=== PATIENT | female | born 1935 | race Caucasian/White ===

== ENCOUNTER 2024-11-25 18:35 | Inpatient (IN) | payer MEDICARE, MEDICAID ==
[~2024-11-25] VITALS: Ht 157.5 cm; Wt 59.4 kg
--- NOTE | 2024-11-25 19:31 | ED.PDOC ---
History of Present Illness HPI Comments Patient is a 89-year-old female with a past medical history of osteopenia, kyphosis, chronic back pain, GERD, peptic ulcer was brought into the ED via her global engineering manager with a chief complaint of generalized weakness and abdominal pain. The global engineering manager reports that patient has been complaining of abdominal pain and grabbing her right flank and right lower abdomen, nausea and multiple episodes of vomiting since the morning, no blood in the vomitus. Patient was unable to walk today and was weak. No fall was reported. The due reported history of a bleeding peptic ulcer in 2021 following which the patient had an EGD and cauterization. Patient denies any pain on urination, no hematuria, no sup rapubic pain, no fever or chills. 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 GRADER History Family History Family History: Reviewed,noncontributory to illness, No family hx of Cancer, No family hx of DM, No family hx of Heart eliceo, No family hx of HTN, No family hx ofKidney eliceo, No family hx of Liver eliceo, No family hx of Lung eliceo, No family hx of Stroke Social History Smoker: Non-Smoker Alcohol: Denies ETOH Use Drugs: Denies Drug Use Constitutional: reports: fatigue, weakness EENTM: denies: blurred vision, double vision, ear bleeding, ear discharge, ear drainage, ear pain, ear ringing, eye pain, eye redness, hearing loss, mouth pain, mouth swelling, nasal discharge, nose bleeding, nose congestion, nose pain, photophobia, tearing, throat pain, throat swelling, voice changes, others Respiratory: denies: cough, hemoptysis, orthopnea, SOB at rest, shortness of breath, SOB with excertion, stridor, wheezing, others Cardiovascular: denies: chest pain, dizzy spells, diaphoresis, Dyspnea on exertion, edema, irregular heart beat, left arm pain, lightheadedness, palpitations, PND, syncope, others Gastrointestinal: reports: abdominal pain, nausea, poor fluid intake, vomiting Genitourinary: denies: abnormal vagina bleeding, burning, dyspareunia, dysuria, flank pain, frequency, hematuria, incontinence, pain, , vagina discharge, urgency, others Neurological: denies: dizziness, fainting, headache, left sided numbness, left sided weakness, numbness, paresthesia, pre-existing deficit, right sided numbness, right sided weakness, seizure, speech problems, tingling, tremors, weakness, others Musculoskeletal: denies: back pain, gout, joint pain, joint swelling, muscle pain, muscle stiffness, neck pain, others Integumetry: denies: bruises, change in color, change in hair/nails, dryness, laceration, lesions, lumps, rash, wounds, others Allergic/Immunocompromised: denies: Difficulty Healing, Frequent Infections, Hives, Itching, others Hematologic/Lymphatic: denies: anemia, blood clots, easy bleeding, easy bruising, swollen glands, others Endocrine: denies: excessive hunger, excessive sweating, excessive thirst, excessive urination, flushing, intolerance to cold, intolerance to heat, unexplained weight gain, unexplained weight loss, others Psychiatric: denies: anxiety, bipolar disorder, depression, hopeless, panic disorder, schizophrenia, sleepless, suicidal, others Physical Exam General Appearance: Thin HEENT: Normal ENT Inspection, Pharynx Normal, TMs Normal Neck: Full Range of Motion, Non-Tender, Normal, Normal Inspection Respiratory: Chest Non-Tender, Lungs Clear, No Accessory Muscle Use, No Respiratory Distress, Normal Breath Sounds Cardiovascular: No Edema, No JVD, No Murmur, No Gallop, Normal Peripheral Pulses, Regular Rate/Rhythm Breast Exam: Deferred Gastrointestinal: No Organomegaly, Non Tender, No Pulsatile Mass, Normal Bowel Sounds, Soft Genitalia: Deferred Pelvic: Deferred Rectal: Deferred Extremities: No calf tenderness, Normal capillary refill, Normal inspection, Normal range of motion, Non-tender, No pedal edema Neurologic: Alert, library media assistant II-XII nml as Tested, No Motor Deficits, Normal Affect, Normal Mood, No Sensory Deficits Cerebellar Function: Normal Reflexes: Normal Skin: Dry, Normal Color, Warm Peripheral Pulses: 2+ carotid (R), 2+ carotid (L), 2+ femoral (R), 2+ femoral (L), 2+ dorsalis pedis (R), 2+ dorsalis pedis (L), 2+ Radial (R), 2+ Radial (L) Lymphatic: No Adenopathy Was a procedure done? Was a procedure done?: No Differential Dx Considerations may include: Acute gastritis, gastroenteritis, diverticulitis SBO, GERD, peptic ulcer disease, cholelithiasis, cholecystitis X-Ray, Labs, Meds, VS Vital Signs Date Time Temp Pulse Resp B/P (MAP) Pulse Ox O2 Delivery O2 Flow Rate FiO2 11/25/24 18:50 97.4 80 16 110/45 (66) 95 97.4 Lab Test 11/25/24 19:41 Range/Units White Blood Count 6.5 4.4-10.8 10^3/uL Red Blood Count 5.00 4.0-5.20 10^6/uL Hemoglobin 15.9 12.2-16.2 g/dL Hematocrit 46.9 H 36.0-46.0 % Mean Corpuscular Volume 93.9 80.0-100.0 fL Mean Corpuscular Hemoglobin 31.8 28.0-32.0 pg Mean Corpuscular Hemoglobin Concent 33.9 32.0-36.0 g/dL Red Cell Distribution Width 13.5 11.8-14.3 % Platelet Count 334 140-450 10^3/uL Mean Platelet Volume 7.5 6.9-10.8 fL Neutrophils (%) (Auto) 70.2 37.0-80.0 % Lymphocytes (%) (Auto) 21.9 10.0-50.0 % Monocytes (%) (Auto) 7.2 0.0-12.0 % Eosinophils (%) (Auto) 0.0 0.0-7.0 % Basophils (%) (Auto) 0.7 0.0-2.0 % Neutrophils # (Auto) 4.6 1.6-8.6 10 ^3/uL Lymphocytes # (Auto) 1.4 0.4-5.4 10 ^3/uL Monocytes # (Auto) 0.5 0-1.3 10 ^3/uL Eosinophils # (Auto) 0 0-0.8 10 ^3/uL Basophils # (Auto) 0 0-0.2 10 ^3/uL Nucleated Red Blood Cells 0.1 % Sodium Level 136 136-145 mmol/L Potassium Level 4.6 3.5-5.1 mmol/L Chloride Level 102 98-107 mmol/L Carbon Dioxide Level 22 20-31 mmol/L Anion Gap 12 5-15 Blood Urea Nitrogen 17 9-23 mg/dL Creatinine 1.51 H 0.550-1.02 mg/dL Glomerular Filtration Rate Calc 33 >90 mL/min BUN/Creatinine Ratio 11.3 10.0-20.0 Serum Glucose 148 H 74-106 mg/dL Calcium Level 10.2 8.7-10.4 mg/dL Patient is a 89-year-old female came in with a chief complaint of abdominal pain and intractable nausea and vomiting. She is not able to keep anything down since the morning. CT abdomen and pelvis was done which showed cholelithiasis, ascending colitis. Patient heard a mild HEATH on CKD likely due to dehydration. She continued to have nausea and vomiting and was given Zofran, Protonix, kept NPO and given IV antibiotics along with the IV fluids. Patient will need inpatient admission for further management and patient and her global engineering manager agrees to the plan. Time of 1ST Reevaluation: 20:10 Reevaluation 1ST: Unchanged Time of 2ND Reevaluation: 21:11 Reevaluation 2ND: Unchanged Patient Education/Counseling: Diagnosis, Treatment, Prognosis Family Education/Counseling: Diagnosis, Treatment, Prognosis SEPSIS Sepsis Screen Physician Orders Ct Ab Pel Wo Con-No Oral Or Iv (11/25/24 19:04) Type And Screen (11/25/24 19:04) Urinalysis (11/25/24 19:04) Abdomen Limited (11/25/24 21:19) Ceftriaxone Ivpb Rocephin (11/25/24 21:30) Metronidazole Ivpb Flagyl (11/25/24 21:30) Ondansetron Hcl (Zofran) (11/25/24 21:30) Blood Culture (11/25/24 21:19) Lactic Acid W/ Reflex Order (11/25/24 21:19) NS (11/25/24 21:30) Vital Signs Date Time Temp Pulse Resp B/P (MAP) Pulse Ox O2 Delivery O2 Flow Rate FiO2 11/25/24 18:50 97.4 80 16 110/45 (66) 95 97.4 Laboratory Tests Test 11/25/24 19:41 White Blood Count 6.5 10^3/uL (4.4-10.8) Departure 1 Departure Time of Disposition: 21:30 Impression: Primary Impression: Acute colitis Additional Impressions: Cholelithiasis Gastroenteritis Acute kidney injury superimposed on CKD Intractable nausea and vomiting Disposition: ADMITTED INPATIENT Condition: Stable Critical Care Note Critical Care Time?: No Stability Stability form required: No Heart Score Heart Score: Heart Score Response (Comments) Value History N/A 0 EKG N/A 0 Age N/A 0 Risk Factors N/A 0 Troponin N/A 0 Total 0 JUSTINA LINARES RESIDENT Nov 25, 2024 19:31
[2024-11-25 20:00] LABS: Hematocrit 46.9 % (36.0-46.0); Hemoglobin 15.9 g/dL (12.2-16.2); Mean Corpuscular Hemoglobin 31.8 pg (28.0-32.0); Mean Corpuscular Volume 93.9 fL (80.0-100.0); Nucleated Red Blood Cells % 0.1 %
[2024-11-25 20:13] LABS: Chloride 102 mmol/L (98-107); Potassium 4.6 mmol/L (3.5-5.1)
[2024-11-25 20:14] LABS: Anion Gap 12 (5-15); Calcium 10.2 mg/dL (8.7-10.4); Carbon Dioxide 22 mmol/L (20-31)
[2024-11-25 20:19] LABS: BUN/Creatinine Ratio 11.3 (10.0-20.0); Blood Urea Nitrogen 17 mg/dL (9-23)
--- NOTE | 2024-11-25 21:05 | DVH ---
Exam: CT CT AB PEL WO CON-NO ORAL OR IV History: intractable N/V, abd pain Comparison Study: None TECHNIQUE: Multidetector CT of the abdomen and pelvis without IV contrast. Axial, coronal and sagitta l multiplanar reformats were obtained from the axial data set by the technologist. Radiation Dose Information: CT Dose: CTDI volume is 9.67 mGy. Dose-length product is 593.77 mGy*cm FINDINGS: Bibasilar atelectasis with trace left-sided pleural effusion. Partially visualized heart is unremark able. Gallstones within a moderately distended gallbladder. Liver, spleen, pancreas and adrenal glands unre markable. Punctate nonobstructing left renal calculus. Mild left pelviectasis. Bilateral ureters and urinary bl adder unremarkable. Uterus and adnexa are unremarkable. There is layering fluid within the gastric fundus. Stomach is otherwise unremarkable. Small bowel loo ps are fluid-filled and non distended. Appendix is not definitely visualized. Mild wall thickening of the ascending colon. Small to moderate amount of fecal material within the colon. No evidence of intraperitoneal free air or free fluid. No evidence of aortic aneurysm. Mild atherosclerotic calcification of the aorta. No significant lymphadenopathy. Tiny fat containing umbilical hernia. Minimal body wall edema. Diffuse demineralization. Mild loss of superior vertebral body height of L1. Moderate loss of vertebral body height of T7 and T9 with mild -to-moderate loss of vertebral body height of T6 and T11. Sclerotic focus of the left L2 vertebral coni dy which may represent a bone island with a blastic lesion not excluded IMPRESSION: Mild wall thickening Distal ascending colon which may be due to inadequate distention with mild Coli tis not excluded. Cholelithiasis without evidence for acute cholecystitis. Right upper quadrant ultrasound should be co nsidered for further evaluation. Mild left renal pelviectasis with no obstructing calculus noted. Punctate nonobstructing left renal calculus. Bibasilar atelectasis with trace left-sided pleural effusion.
[2024-11-25 21:18] LABS: Glucose 148 mg/dL (74-106); Sodium 136 mmol/L (136-145)
[2024-11-25] MEDS ORDERED: ONDANSETRON HCL 4 MG/2 ML VIAL IV PRN (22:00)
--- NOTE | 2024-11-25 22:38 | DVH ---
INDICATION: Cholelithiasis, abd pain , suspected cholecystitis TECHNIQUE: Multiple real-time sonographic images were obtained of the right upper quadrant. COMPARISON: None FINDINGS: Evaluation is mildly limited. The liver demonstrates homogenous echotexture without focal mass lesions. The liver measures 9.4 mm. There is no intrahepatic or extrahepatic ductal dilatation. The common duct measures 5 cm. There is cholelithiasis. The gallbladder wall measures 1 mm and is within normal limits. The right kidney measures 7.0 cm. The right kidney is normal in contour, size, and shape. The echog enicity is normal. There is no hydronephrosis. The pancreas is not well visualized due to overlying bowel gas. IMPRESSION: 1. Cholelithiasis without sonographic evidence of acute cholecystitis.
[2024-11-25 22:53] LABS: Lactic Acid w/Reflex 2.4 mmol/L (0.4-2.0)
[2024-11-26] VITALS (7 sets, daily range): BP systolic 130–154; BP diastolic 52–77; PULSE 65–85; RESP 17–18; TEMP 97.3–98.1; O2SAT 92–95
[2024-11-26] MEDS: ONDANSETRON HCL 4 MG/2 ML VIAL IV ONE ×2 (01:36→01:53)
[2024-11-26] MEDS: cefTRIAXone 1GM/50ML D5W 50 ML IV ONE ×2 (01:53→12:47)
[2024-11-26] MEDS: PANTOPRAZOLE 40 MG/10 ML VIAL INJ IV ONE (01:54)
[2024-11-26] MEDS: SODIUM CHLORIDE 0.9% 1,000 ML IV ONE ×2 (01:54→12:42)
[2024-11-26] MEDS ORDERED: CHOL20007 PO (03:08)
[2024-11-26] MEDS ORDERED: MULT-732 OR (03:08)
--- NOTE | 2024-11-26 03:48 | DVHHP2 ---
History of Present Illness Reason for Visit: Nausea and vomiting History of Present Illness 89-year-old female presents for evaluation of nausea and vomiting. Patient is accompanied by her caregiver reports patient having nausea and vomiting since yesterday with associated decreased appetite. Patient does have a history of de mentia. It is reported the patient is complaining of right-sided abdominal pain. No fever or chills. No diarrhea. Past Medical History Peptic ulcer disease, dementia Past Surgical History Appendectomy Family History Noncontributory Smoke: No ALCOHOL: none Drugs: None Review of Systems Review of Systems Constituitional: Negative for fever HENT: Negative for Headache, Negative for Sore Throat Eyes: Negative for pain and change in vision Respirartory: Negative for Shortness of Breath Cardiovascular: Negative for Chest Pain Gastrointestinal: Negative for abdominal pain, swelling Endocrine: Negative for polyuria, Polydipsia Genitourinary: Negative for dysuria Musculoskeletal: Negative for skeletal pain Skin Negative for rash Neurological: Negative for headache and weakness All other systems reviewed and negative are limited due to the patient's dementia. Allergies: Coded Allergies: NO KNOWN ALLERGIES (Unverified , 11/25/24) Medications Current Medications Medications Dose Ordered Sig/Marci Route Start Time Stop Time Status Last Admin Dose Admin Metronidazole 100 ml @ 100 mls/hr Q8HR IV 11/26/24 06:00 Pantoprazole Sodium 40 mg DAILY IV 11/26/24 10:00 Acetaminophen/ Hydrocodone Bitart 1 tab Q4HP PRN PO 11/25/24 22:00 Ondansetron HCl 4 mg Q4HP PRN IV 11/25/24 22:00 Acetaminophen 650 mg Q6HP PRN PO 11/25/24 22:00 Exam Vital Signs Vital Signs Date Time Temp Pulse Resp B/P (MAP) Pulse Ox O2 Delivery O2 Flow Rate FiO2 11/26/24 02:15 65 18 95 Room Air 11/26/24 02:15 98.6 155/54 (87) 98.6 Exam Gen: 89-year-old female in mild distress Skin: Warm, dry, normal color and texture, no rash. HEENT: Normocephalic atraumatic, mucous membranes moist and pink. Neck: Cervical and supraclavicular nodes normal without enlargement, trachea is midline, thyroid gland is normal without masses. Pulmonary: Clear to auscultation and percussion bilaterally. Cardiac: Regular rate and rhythm. No murmur Abdomen: Soft, nontender, nondistended, bowel sounds present all 4 quadrants, no guarding, no rigidity, no organomegaly. Extremities: No cyanosis, clubbing, no edema Neuro: Cranial nerves II through XII grossly intact, normal affect and speech, no focal motor deficits. Labs/Xrays ORDERING PHYSICIAN: JUSTINA LINARES RESIDENT PROCEDURE(s): ABDL - ABDOMEN LIMITED REASON: Cholelithiasis, abd pain , suspected cholecystitis ORDER NUMBER(s): [id number], ACCESSION NUMBER(s): [id number] INDICATION: Cholelithiasis, abd pain , suspected cholecystitis TECHNIQUE: Multiple real-time sonographic images were obtained of the right upper quadrant. COMPARISON: None FINDINGS: Evaluation is mildly limited. The liver demonstrates homogenous echotexture without focal mass lesions. The liver measures 9.4 mm. There is no intrahepatic or extrahepatic ductal dilatation. The common duct measures 5 cm. There is cholelithiasis. The gallbladder wall measures 1 mm and is within normal limits. The right kidney measures 7.0 cm. The right kidney is normal in contour, size, and shape. The echogenicity is normal. There is no hydronephrosis. The pancreas is not well visualized due to overlying bowel gas. IMPRESSION: 1. Cholelithiasis without sonographic evidence of acute cholecystitis. RING PHYSICIAN: JUSTINA LINARES RESIDENT PROCEDURE(s): ABPL - CT AB PEL WO CON-NO ORAL OR IV REASON: intractable N/V, abd pain ORDER NUMBER(s): [id number], ACCESSION NUMBER(s): [id number] Exam: CT CT AB PEL WO CON-NO ORAL OR IV History: intractable N/V, abd pain Comparison Study: None TECHNIQUE: Multidetector CT of the abdomen and pelvis without IV contrast. Axial, coronal and sagittal multiplanar reformats were obtained from the axial data set by the technologist. Radiation Dose Information: CT Dose: CTDI volume is 9.67 mGy. Dose-length product is 593.77 mGy*cm FINDINGS: Bibasilar atelectasis with trace left-sided pleural effusion. Partially visualized heart is unremarkable. Gallstones within a moderately distended gallbladder. Liver, spleen, pancreas and adrenal glands unremarkable. Punctate nonobstructing left renal calculus. Mild left pelviectasis. Bilateral ureters and urinary bladder unremarkable. Uterus and adnexa are unremarkable. There is layering fluid within the gastric fundus. Stomach is otherwise unremarkable. Small bowel loops are fluid-filled and non distended. Appendix is not definitely visualized. Mild wall thickening of the ascending colon. Small to moderate amount of fecal material within the colon. No evidence of intraperitoneal free air or free fluid. No evidence of aortic aneurysm. Mild atherosclerotic calcification of the aorta. No significant lymphadenopathy. Tiny fat containing umbilical hernia. Minimal body wall edema. Diffuse demineralization. Mild loss of superior vertebral body height of L1. Moderate loss of vertebral body height of T7 and T9 with [id number] loss of vertebral body height of T6 and T11. Sclerotic focus of the left L2 vertebral body which may represent a bone island with a blastic lesion not excluded IMPRESSION: Mild wall thickening Distal ascending colon which may be due to inadequate distention with mild Colitis not excluded. Cholelithiasis without evidence for acute cholecystitis. Right upper quadrant ultrasound should be considered for further evaluation. Mild left renal pelviectasis with no obstructing calculus noted. Punctate nonobstructing left renal calculus. Bibasilar atelectasis with trace left-sided pleural effusion. ATED BY: PRISCILA MARTÍNEZ DO Labs Test 11/25/24 23:33 11/25/24 19:41 Range/Units Lactic Acid Level 2.2 *H 0.4-2.0 mmol/L White Blood Count 6.5 4.4-10.8 10^3/uL Red Blood Count 5.00 4.0-5.20 10^6/uL Hemoglobin 15.9 12.2-16.2 g/dL Hematocrit 46.9 H 36.0-46.0 % Mean Corpuscular Volume 93.9 80.0-100.0 fL Mean Corpuscular Hemoglobin 31.8 28.0-32.0 pg Mean Corpuscular Hemoglobin Concent 33.9 32.0-36.0 g/dL Red Cell Distribution Width 13.5 11.8-14.3 % Platelet Count 334 140-450 10^3/uL Mean Platelet Volume 7.5 6.9-10.8 fL Neutrophils (%) (Auto) 70.2 37.0-80.0 % Lymphocytes (%) (Auto) 21.9 10.0-50.0 % Monocytes (%) (Auto) 7.2 0.0-12.0 % Eosinophils (%) (Auto) 0.0 0.0-7.0 % Basophils (%) (Auto) 0.7 0.0-2.0 % Neutrophils # (Auto) 4.6 1.6-8.6 10 ^3/uL Lymphocytes # (Auto) 1.4 0.4-5.4 10 ^3/uL Monocytes # (Auto) 0.5 0-1.3 10 ^3/uL Eosinophils # (Auto) 0 0-0.8 10 ^3/uL Basophils # (Auto) 0 0-0.2 10 ^3/uL Nucleated Red Blood Cells 0.1 % Sodium Level 136 136-145 mmol/L Potassium Level 4.6 3.5-5.1 mmol/L Chloride Level 102 98-107 mmol/L Carbon Dioxide Level 22 20-31 mmol/L Anion Gap 12 5-15 Blood Urea Nitrogen 17 9-23 mg/dL Creatinine 1.51 H 0.550-1.02 mg/dL Glomerular Filtration Rate Calc 33 >90 mL/min BUN/Creatinine Ratio 11.3 10.0-20.0 Serum Glucose 148 H 74-106 mg/dL Calcium Level 10.2 8.7-10.4 mg/dL SEPSIS Sepsis Screen Date sepsis recognized/suspect: Nov 25, 2024 Time Sepsis recognized/suspect: 1844 Recent Procedure: No On Antibiotic Therapy: No Respiratory Rate >20: No Heart Rate >90: No Temp<36 C (96.8 F) or >38.3 C: No SBP <90 or MAP <65 mmHG: No New Acute Mental Status Change: No Is the patient on CPAP, BIPAP,: No Physician Orders Abdomen Limited (11/25/24 21:19) Blood Culture (11/25/24 21:19) Urinalysis (11/25/24 21:54) Pantoprazole (Protonix) (11/26/24 10:00) * Gi Dvh Beef Splitter (11/25/24 21:54) Basic Metabolic Panel (11/26/24 04:00) Admit (11/25/24 21:54) Hydrocodone-Acet 5/325mg Tab ([place] /32 (11/25/24 22:00) Ondansetron Hcl (Zofran) (11/25/24 22:00) Condition: Stable (11/25/24 21:54) Acetaminophen Tablet (Tylenol Tablet) (11/25/24 22:00) Clear Liq Diet (11/26/24 Breakfast) Bedrest With Bathroom Privileg (11/25/24 21:54) Metronidazole 500mg/100ml (Flagyl 500mg/ (11/26/24 06:00) Vital Signs Date Time Temp Pulse Resp B/P (MAP) Pulse Ox O2 Delivery O2 Flow Rate FiO2 11/26/24 02:15 65 18 95 Room Air 11/26/24 02:15 98.6 76 18 155/54 (87) 95 98.6 Laboratory Tests Test 11/25/24 19:41 11/25/24 21:20 11/25/24 23:33 White Blood Count 6.5 10^3/uL (4.4-10.8) Lactic Acid Level 2.4 mmol/L (0.4-2.0) *H 2.2 mmol/L (0.4-2.0) *H Medications Medications Dose Ordered Sig/Marci Route Start Time Stop Time Status Last Admin Dose Admin Ceftriaxone Sodium 50 ml @ 100 mls/hr ONCE ONCE IV 11/25/24 21:30 11/25/24 21:59 DC 11/26/24 01:53 100 MLS/HR Ondansetron HCl 4 mg ONCE ONCE IV 11/25/24 21:30 11/25/24 21:54 DC 11/26/24 01:53 4 MG Pantoprazole Sodium 40 mg ONCE ONCE IV 11/25/24 19:15 11/25/24 19:16 DC 11/26/24 01:54 40 MG Sodium Chloride 1,000 ml @ 500 mls/hr Q2H ONCE IV 11/25/24 21:30 11/25/24 23:29 DC 11/26/24 01:54 500 MLS/HR Assessment/Plan Assessment/Plan Assessment Acute abdominal pain ? Acute colitis Acute on chronic kidney disease Plan Admit the patient to Med surge to the hospitalist GI consult Roceproman/Flagyl Maintenance IV fluids Continue treatment per orders. Plan discussed with: Other My Orders Orders - JAYA MADERA Procedure Category Date Status Time Urinalysis LAB 11/25/24 Logged 21:54 Pantoprazole PHA 11/26/24 In Process (Protonix) 10:00 * Gi Dvh Beef Splitter CONS 11/25/24 Transmitted 21:54 Basic Metabolic Panel LAB 11/26/24 Logged 04:00 Admit ADMIT 11/25/24 Transmitted 21:54 Hydrocodone-Acet PHA 11/25/24 In Process 5/325mg Tab ([place] 22:00 Ondansetron Hcl PHA 11/25/24 In Process (Zofran) 22:00 Condition: Stable [facility] 11/25/24 In Process 21:54 Acetaminophen Tablet PHA 11/25/24 In Process (Tylenol Tablet) 22:00 Clear Liq Diet DIET 11/26/24 Transmitted Breakfast Bedrest With Bathroom [facility] 11/25/24 In Process Privileg 21:54 Metronidazole PHA 11/26/24 In Process 500mg/100ml (Flagyl 06:00 Date of Service: Nov 25, 2024 Billing Provider: JAYA MADERA Common Visit Codes: [id number] INP/OBS CARE (MOD) JAYA MADERA Nov 26, 2024 03:48
[2024-11-26 07:07] LABS: Chloride 103 mmol/L (98-107); Potassium 4.5 mmol/L (3.5-5.1); Sodium 136 mmol/L (136-145)
[2024-11-26 07:08] LABS: Anion Gap 9 (5-15); Calcium 9.6 mg/dL (8.7-10.4); Carbon Dioxide 24 mmol/L (20-31)
[2024-11-26 07:13] LABS: BUN/Creatinine Ratio 13.8 (10.0-20.0); Blood Urea Nitrogen 19 mg/dL (9-23); Glucose 120 mg/dL (74-106)
[2024-11-26] MEDS: PANTOPRAZOLE 40 MG/10 ML VIAL INJ IV SCH (09:12)
[2024-11-26 09:49] LABS: Alanine Aminotransferase 11.0 U/L (7-40); Albumin 3.8 g/dL (3.2-4.8); Alkaline Phosphatase 74.0 U/L (46-116); Bilirubin, Direct 0.2 mg/dL (<0.3); Bilirubin, Total 0.5 mg/dL (0.2-1.0); Total Protein 6.5 g/dL (5.7-8.2)
--- NOTE | 2024-11-26 13:17 | DVHINCON2 ---
GI Consult Consult Note GI consult note Date of Consultation: 11/26/2024 Chief Complaint: Abdominal pain Referring Physician: Gregory CHAVEZ H&P: 89-year-old female presented to ER with complains of nausea and vomiting, patient had about 10 episodes last night per caregiver. No hematemesis. Patient also complaining of abdominal pain, which seems to be get worse after eating, but overall pain is improving. Patient complains of back pain which seems to be worse with movement. Also having loose watery stools about 3 times last night. No melena or red blood in stool Patient has history of PUD, status post EGD three years ago Past Medical History: Peptic ulcer disease, dementia Past Surgical History: Appendectomy Social History: NO smoking, drinking ETOH and use of illegal drugs. Family History: Noncontributory Review of Systems: Constitutional: no fever, chill, weight loss HEENT: no eye pain, no hearing loss, no oral lesion, no scleral icterus Heart: no chest pain, no chest pressure Lung: no cough, no dyspnea with exertion Abdomen: see HPI Physical exam: General: NAD, AAO Chest: lung trammell clear to auscultation Heart: RRR, no murmur Abdomen: non-distended, no tenderness to palpation, +BS Labs: Labs Test 11/26/24 05:41 11/25/24 23:33 11/25/24 19:41 Range/Units Sodium Level 136 136-145 mmol/L Potassium Level 4.5 3.5-5.1 mmol/L Chloride Level 103 98-107 mmol/L Carbon Dioxide Level 24 20-31 mmol/L Anion Gap 9 5-15 Blood Urea Nitrogen 19 9-23 mg/dL Creatinine 1.38 H 0.550-1.02 mg/dL Glomerular Filtration Rate Calc 37 >90 mL/min BUN/Creatinine Ratio 13.8 10.0-20.0 Serum Glucose 120 H 74-106 mg/dL Calcium Level 9.6 8.7-10.4 mg/dL Total Bilirubin 0.5 0.2-1.0 mg/dL Direct Bilirubin 0.2 <0.3 mg/dL Aspartate Amino Transferase (AST) 21 13-40 U/L Alanine Aminotransferase (ALT) 11 7-40 U/L Alkaline Phosphatase 74 46-116 U/L Total Protein 6.5 5.7-8.2 g/dL Albumin 3.8 3.2-4.8 g/dL Lactic Acid Level 2.2 *H 0.4-2.0 mmol/L White Blood Count 6.5 4.4-10.8 10^3/uL Red Blood Count 5.00 4.0-5.20 10^6/uL Hemoglobin 15.9 12.2-16.2 g/dL Hematocrit 46.9 H 36.0-46.0 % Mean Corpuscular Volume 93.9 80.0-100.0 fL Mean Corpuscular Hemoglobin 31.8 28.0-32.0 pg Mean Corpuscular Hemoglobin Concent 33.9 32.0-36.0 g/dL Red Cell Distribution Width 13.5 11.8-14.3 % Platelet Count 334 140-450 10^3/uL Mean Platelet Volume 7.5 6.9-10.8 fL Neutrophils (%) (Auto) 70.2 37.0-80.0 % Lymphocytes (%) (Auto) 21.9 10.0-50.0 % Monocytes (%) (Auto) 7.2 0.0-12.0 % Eosinophils (%) (Auto) 0.0 0.0-7.0 % Basophils (%) (Auto) 0.7 0.0-2.0 % Neutrophils # (Auto) 4.6 1.6-8.6 10 ^3/uL Lymphocytes # (Auto) 1.4 0.4-5.4 10 ^3/uL Monocytes # (Auto) 0.5 0-1.3 10 ^3/uL Eosinophils # (Auto) 0 0-0.8 10 ^3/uL Basophils # (Auto) 0 0-0.2 10 ^3/uL Nucleated Red Blood Cells 0.1 % Imaging: CT abdomen pelvis IMPRESSION: Mild wall thickening Distal ascending colon which may be due to inadequate distention with mild Colitis not excluded. Cholelithiasis without evidence for acute cholecystitis. Right upper quadrant ultrasound should be considered for further evaluation. Mild left renal pelviectasis with no obstructing calculus noted. Punctate nonobstructing left renal calculus. Bibasilar atelectasis with trace left-sided pleural effusion. Abdominal ultrasound IMPRESSION: 1. Cholelithiasis without sonographic evidence of acute cholecystitis. Assessment: Abdominal pain Nausea vomiting Cholelithiasis Possible colitis Plan: Discussed with Dr. José Antonio SULLIVAN scan Stool for bacterial culture and C diff Zofran and Protonix Monitor labs Discussed plan with patient family at bedside and RN Thank you for this consult Date of Service: Nov 26, 2024 Billing Provider: SYBIL SALINAS Common Visit Codes: CONSULT ONLY Consultation Codes: [id number] CONSULT <60MIN SYBIL SALINAS Nov 26, 2024 13:17
--- NOTE | 2024-11-26 14:39 | DVH ---
CLINICAL INFORMATION: 89 years old, Female; abdo pain/gallstones. TECHNIQUE: 3.4 mCi of Choletec were administered intravenously. Images of the upper abdomen were ob tained at 2 minute intervals up to a total time of 32 minutes. COMPARISON: None FINDINGS: There is prompt gallbladder visualization. There is prompt excretion of activity from the biliary ductal system into the small bowel. There is no evidence of acute cholecystitis. IMPRESSION: No scintigraphic evidence of acute cholecystitis.
--- NOTE | 2024-11-26 16:44 | DVHPN2 ---
Subjective She is comfortable in bed without distress. Family is at bedside. Patient apparently has dementia and gets sundowning per family. Changes from previous H/P or p: No Changes Objective Vitals Vital Signs Date Time Temp Pulse Resp B/P (MAP) Pulse Ox O2 Delivery O2 Flow Rate FiO2 11/26/24 13:00 97.3 65 18 154/77 (102) 95 97.3 11/26/24 07:30 Room Air* 0 21 Intake/Output Intake and Output 11/26/24 07:00 Intake Total 100 ml Balance 100 ml Intake Oral 100 ml # Voids 1 Exam Alert awake oriented to person only. Comfortable in bed without distress. Family is at bedside. HEENT neck supple no JVD pupils equal round react to light. Heart regular rate and rhythm S1 plus S2 without murmurs. Lungs fair air movement chest tube will expansion. No rales or wheezes. Abdomen is soft nontender nondistended positive bowel sounds. No organomegaly noted. Extremities no edema positive pulses. Medications Current Medications Medications Dose Ordered Sig/Marci Route Start Time Stop Time Status Last Admin Dose Admin Metronidazole 100 ml @ 100 mls/hr Q8HR IV 11/26/24 06:00 11/26/24 14:34 100 MLS/HR Pantoprazole Sodium 40 mg DAILY IV 11/26/24 10:00 11/26/24 09:12 40 MG Acetaminophen/ Hydrocodone Bitart 1 tab Q4HP PRN PO 11/25/24 22:00 Ondansetron HCl 4 mg Q4HP PRN IV 11/25/24 22:00 Acetaminophen 650 mg Q6HP PRN PO 11/25/24 22:00 Enoxaparin Sodium 30 mg DAILY SC 11/27/24 10:00 Ceftriaxone Sodium 50 ml @ 100 mls/hr DAILY@09 IV 11/27/24 09:00 Laboratory Results Laboratory Tests 11/25/24 19:41 11/26/24 05:41 Chemistry Test 11/25/24 19:41 11/26/24 05:41 Calcium Level 10.2 mg/dL (8.7-10.4) 9.6 mg/dL (8.7-10.4) Albumin 3.8 g/dL (3.2-4.8) Total Protein 6.5 g/dL (5.7-8.2) LFT Test 11/26/24 05:41 Alanine Aminotransferase (ALT) 11 U/L (7-40) Alkaline Phosphatase 74 U/L (46-116) Aspartate Amino Transferase (AST) 21 U/L (13-40) Direct Bilirubin 0.2 mg/dL (<0.3) Total Bilirubin 0.5 mg/dL (0.2-1.0) Assessment/Plan Assessment/Plan Continue current antibiotics. Advance diet as she tolerates. HIDA scan is ordered per GI request. Fall precautions. Supportive care and treatment. Further clinical management per clinical course. Discussed with the patient's family and nurse regarding care plan. Plan discussed with: Patient, Other My Orders Orders - LUCRECIA ROQUE MD Procedure Category Date Status Time Pt Request For Service PT 11/26/24 Logged 12:08 Enoxaparin Sodium PHA 11/27/24 In Process (Lovenox) 10:00 Ceftriaxone 1gm/50ml PHA 11/27/24 In Process D5w (Rocephin) 09:00 Basic Metabolic Panel LAB 11/27/24 Verified 04:00 Complete Blood Count LAB 11/27/24 Verified 04:00 Nm Hida Scan NM 11/26/24 Resulted 12:08 Lactic Acid W/ Reflex LAB 11/27/24 Verified Order 04:00 Sodium Chloride 0.9% PHA 11/26/24 In Process 12:15 Problem List: (1) Cholelithiasis (2) Acute colitis (3) Acute kidney injury superimposed on CKD Date of Service: Nov 26, 2024 Billing Provider: LUCRECIA ROQUE MD Common Visit Codes: [id number] INP/OBS CARE(MOD) LUCRECIA ROQUE MD Nov 26, 2024 16:44
[2024-11-26] MEDS: ACETAMINOPHEN 325 MG TAB PO PRN (20:52)
[2024-11-26 21:29] LABS: Urine Protein, UAD Negative (Negative)
[2024-11-27] VITALS (7 sets, daily range): BP systolic 104–149; BP diastolic 43–62; PULSE 60–80; RESP 16–18; TEMP 97.8–98.5; O2SAT 94–97
[2024-11-27 08:05] LABS: Calcium 9.2 mg/dL (8.7-10.4); Chloride 106 mmol/L (98-107); Potassium 4.2 mmol/L (3.5-5.1); Sodium 138 mmol/L (136-145)
[2024-11-27 08:06] LABS: Anion Gap 8 (5-15); Carbon Dioxide 24 mmol/L (20-31)
[2024-11-27 08:08] LABS: Hematocrit 38.5 % (36.0-46.0); Hemoglobin 13.2 g/dL (12.2-16.2); Mean Corpuscular Hemoglobin 32.2 pg (28.0-32.0); Mean Corpuscular Volume 94.1 fL (80.0-100.0); Nucleated Red Blood Cells % 0.1 %
[2024-11-27 08:11] LABS: BUN/Creatinine Ratio 13.2 (10.0-20.0); Blood Urea Nitrogen 17 mg/dL (9-23); Glucose 99 mg/dL (74-106)
[2024-11-27] MEDS: cefTRIAXone 1GM/50ML D5W 50 ML IV SCH (09:48)
[2024-11-27] MEDS: ENOXAPARIN SOD 30 MG/0.3 ML SYRINGE SC SCH (09:49)
--- NOTE | 2024-11-27 16:20 | DVHPN2 ---
Subjective She is comfortable in bed without distress. Tolerating clear liquids. Still complains of some nausea. Changes from previous H/P or p: No Changes Objective Vitals Vital Signs Date Time Temp Pulse Resp B/P (MAP) Pulse Ox O2 Delivery O2 Flow Rate FiO2 11/27/24 13:00 98.5 74 17 149/60 (89) 95 98.5 11/26/24 07:30 Room Air* 0 21 Intake/Output Intake and Output 11/27/24 07:00 Intake Total 1620 ml Balance 1620 ml Intake Oral 1620 ml # Voids 9 # Bowel Movements 1 Exam Alert awake oriented to person only. Comfortable in bed without distress. Family is at bedside. HEENT neck supple no JVD pupils equal round react to light. Heart regular rate and rhythm S1 plus S2 without murmurs. Lungs fair air movement chest tube will expansion. No rales or wheezes. Abdomen is soft nontender nondistended positive bowel sounds. No organomegaly noted. Extremities no edema positive pulses. Medications Current Medications Medications Dose Ordered Sig/Marci Route Start Time Stop Time Status Last Admin Dose Admin Metronidazole 100 ml @ 100 mls/hr Q8HR IV 11/26/24 06:00 11/27/24 14:00 100 MLS/HR Pantoprazole Sodium 40 mg DAILY IV 11/26/24 10:00 11/27/24 09:48 40 MG Acetaminophen/ Hydrocodone Bitart 1 tab Q4HP PRN PO 11/25/24 22:00 Ondansetron HCl 4 mg Q4HP PRN IV 11/25/24 22:00 Acetaminophen 650 mg Q6HP PRN PO 11/25/24 22:00 11/27/24 13:59 650 MG Enoxaparin Sodium 30 mg DAILY SC 11/27/24 10:00 11/27/24 09:49 30 MG Ceftriaxone Sodium 50 ml @ 100 mls/hr DAILY@09 IV 11/27/24 09:00 11/27/24 09:48 100 MLS/HR Laboratory Results Laboratory Tests 11/27/24 07:19 Chemistry Test 11/27/24 07:19 Calcium Level 9.2 mg/dL (8.7-10.4) Urinalysis Test 11/26/24 21:05 Urine Color Colorless (Yellow) Urine Clarity Clear (Clear) Urine pH 6.5 (5.0-9.0) Urine Specific [place] 1.006 (1.001-1.035) Urine Protein Negative (Negative) Urine Ketones Negative (Negative) Urine Blood Negative /uL (Negative) Urine Nitrite Negative (Negative) Urine Bilirubin Negative (Negative) Urine Urobilinogen Normal mg/dL (Negative) Urine Leukocyte Esterase Negative /uL (Negative) Urine RBC 1 /hpf (0 - 4) Urine Microscopic WBC 3 /HPF (0-5) Urine Squamous Epithelial Cells None seen /hpf (<5) Urine Bacteria None seen /hpf (None Seen) Urine Glucose Normal mg/dL (Normal) Microbiology Microbiology Date/Time Source Procedure Growth Status 11/25/24 21:39 Blood Blood Culture - Preliminary NO GROWTH AFTER 24 HOURS OF INCUBATION. Resulted Assessment/Plan Assessment/Plan Continue current antibiotics. Advance diet as she tolerates. HIDA scan is normal without any acute cholecystitis. Gallstones noted. Continue current management and if she remains stable consider discharge home tomorrow. Discussed with the nurse regarding care plan. Plan discussed with: Other My Orders Orders - LUCRECIA ROQUE MD Procedure Category Date Status Time Advance Diet As SHAWN 11/27/24 In Process Tolerated 11:41 Problem List: (1) Gastroenteritis (2) Intractable nausea and vomiting (3) Cholelithiasis (4) Acute colitis (5) Acute kidney injury superimposed on CKD Date of Service: Nov 27, 2024 Billing Provider: LUCRECIA ROQUE MD Common Visit Codes: [id number] INP/OBS CARE(MOD) LUCRECIA ROQUE MD Nov 27, 2024 16:19
--- NOTE | 2024-11-27 21:12 | DVHPN2 ---
Progress Note - Dictate Date Seen: Nov 27, 2024 Medical Necessity Reason Pt with a Central, PICC or Fol: No (Susan Benson) Subjective No new complaints, resting comfortably Abdominal pain has resolved patient has mild nausea She is tolerating a diet HIDA scan is negative vital signs Vital Sign Date Time Temp Pulse Resp B/P (MAP) Pulse Ox O2 Delivery O2 Flow Rate FiO2 11/27/24 16:56 98.2 76 16 140/59 (86) 94 98.2 11/27/24 08:00 Room Air* 0 21 Total Intake and Output 11/26/24 11/26/24 11/27/24 15:00 23:00 07:00 Intake Total 920 ml 700 ml Balance 920 ml 700 ml medications Current Medications Medications Dose Ordered Sig/Marci Route Start Time Stop Time Status Last Admin Dose Admin Metronidazole 100 ml @ 100 mls/hr Q8HR IV 11/26/24 06:00 11/27/24 14:00 100 MLS/HR Pantoprazole Sodium 40 mg DAILY IV 11/26/24 10:00 11/27/24 09:48 40 MG Acetaminophen/ Hydrocodone Bitart 1 tab Q4HP PRN PO 11/25/24 22:00 Ondansetron HCl 4 mg Q4HP PRN IV 11/25/24 22:00 Acetaminophen 650 mg Q6HP PRN PO 11/25/24 22:00 11/27/24 20:44 650 MG Enoxaparin Sodium 30 mg DAILY SC 11/27/24 10:00 11/27/24 09:49 30 MG Ceftriaxone Sodium 50 ml @ 100 mls/hr DAILY@09 IV 11/27/24 09:00 11/27/24 09:48 100 MLS/HR objective General: NAD, AAO Chest: lung trammell clear to auscultation Heart: RRR, no murmur Abdomen: non-distended, no tenderness to palpation, +BS laboratory and microbiology Laboratory Tests 11/27/24 07:19 Test 11/27/24 07:19 Range/Units Serum Glucose 99 74-106 mg/dL Problems(with codes): (1) Acute kidney injury superimposed on CKD (2) Acute colitis (3) Cholelithiasis (4) Intractable nausea and vomiting (5) Gastroenteritis Prognosis Plan Protonix 40 mg p.o. daily Zofran 8 mg p.o. twice a day as needed for nausea Advance diet as tolerated Outpatient follow up with GI Services to discuss elective panendoscopy Once again thank you for allowing me to participate in the care of this patient Plan discussed with: Patient ANABELL HANDY MD Nov 27, 2024 21:12
[2024-11-28 01:00] VITALS: BP 110/48; PULSE 86; RESP 17; TEMP 97.6; O2SAT 95
[2024-11-28 05:00] VITALS: BP 113/52; PULSE 85; RESP 16; TEMP 97.9; O2SAT 92
[2024-11-28 09:00] VITALS: BP 139/55; PULSE 70; RESP 18; TEMP 97.8; O2SAT 96
[2024-11-28] MEDS ORDERED: METR-344 PO (11:01)
[2024-11-28] MEDS ORDERED: CEFD300C2 PO (11:01)
[2024-11-28] MEDS ORDERED: ACET-1304 PO (11:01)
--- NOTE | 2024-11-28 11:02 | DVHDS2 ---
Discharge Summary Date of Admission Nov 25, 2024 at 21:54 Date of Discharge: Nov 29, 2024 Labs/Diagnostic Data: Laboratory Results Test 11/27/24 07:19 11/26/24 21:05 11/26/24 05:41 White Blood Count 10.1 10^3/uL (4.4-10.8) Red Blood Count 4.10 10^6/uL (4.0-5.20) Hemoglobin 13.2 g/dL (12.2-16.2) Hematocrit 38.5 % (36.0-46.0) Mean Corpuscular Volume 94.1 fL (80.0-100.0) Mean Corpuscular Hemoglobin 32.2 pg (28.0-32.0) Mean Corpuscular Hemoglobin Concent 34.2 g/dL (32.0-36.0) Red Cell Distribution Width 13.7 % (11.8-14.3) Platelet Count 268 10^3/uL (140-450) Mean Platelet Volume 7.7 fL (6.9-10.8) Neutrophils (%) (Auto) 65.6 % (37.0-80.0) Lymphocytes (%) (Auto) 20.4 % (10.0-50.0) Monocytes (%) (Auto) 13.4 % (0.0-12.0) Eosinophils (%) (Auto) 0.2 % (0.0-7.0) Basophils (%) (Auto) 0.4 % (0.0-2.0) Neutrophils # (Auto) 6.6 10 ^3/uL (1.6-8.6) Lymphocytes # (Auto) 2.1 10 ^3/uL (0.4-5.4) Monocytes # (Auto) 1.3 10 ^3/uL (0-1.3) Eosinophils # (Auto) 0 10 ^3/uL (0-0.8) Basophils # (Auto) 0 10 ^3/uL (0-0.2) Nucleated Red Blood Cells 0.1 % Sodium Level 138 mmol/L (136-145) Potassium Level 4.2 mmol/L (3.5-5.1) Chloride Level 106 mmol/L (98-107) Carbon Dioxide Level 24 mmol/L (20-31) Anion Gap 8 (5-15) Blood Urea Nitrogen 17 mg/dL (9-23) Creatinine 1.29 mg/dL (0.550-1.02) Glomerular Filtration Rate Calc 40 mL/min (>90) BUN/Creatinine Ratio 13.2 (10.0-20.0) Serum Glucose 99 mg/dL (74-106) Lactic Acid Level 0.8 mmol/L (0.4-2.0) Calcium Level 9.2 mg/dL (8.7-10.4) Urine Color Colorless (Yellow) Urine Clarity Clear (Clear) Urine pH 6.5 (5.0-9.0) Urine Specific [place] 1.006 (1.001-1.035) Urine Protein Negative (Negative) Urine Ketones Negative (Negative) Urine Blood Negative /uL (Negative) Urine Nitrite Negative (Negative) Urine Bilirubin Negative (Negative) Urine Urobilinogen Normal mg/dL (Negative) Urine Leukocyte Esterase Negative /uL (Negative) Urine RBC 1 /hpf (0 - 4) Urine Microscopic WBC 3 /HPF (0-5) Urine Squamous Epithelial Cells None seen /hpf (<5) Urine Bacteria None seen /hpf (None Seen) Urine Glucose Normal mg/dL (Normal) Total Bilirubin 0.5 mg/dL (0.2-1.0) Direct Bilirubin 0.2 mg/dL (<0.3) Aspartate Amino Transferase (AST) 21 U/L (13-40) Alanine Aminotransferase (ALT) 11 U/L (7-40) Alkaline Phosphatase 74 U/L (46-116) Total Protein 6.5 g/dL (5.7-8.2) Albumin 3.8 g/dL (3.2-4.8) Other Laboratory Tests 11/27/24 07:19 Brief Hx & Hospital Course: 89-year-old female presents for evaluation of nausea and vomiting. Patient is accompanied by her caregiver reports patient having nausea and vomiting since yesterday with associated decreased appetite. Patient does have a history of dementia. It is reported the patient is complaining of right-sided abdominal pain. No fever or chills. No diarrhea. She is admitted and had a CT of the abdomen as well as gallbladder ultrasound. Showed mild colitis. Gallbladder did not show any evidence of acute cholecystitis. While in the hospital patient did not have any significant diarrhea to send for any stool studies. Her white cell count was relatively stable. She is afebrile. Patient however empirically treated with the antibiotics for possible colitis per GI recommendations. Patient is otherwise clinically stable. Her nausea has improved. Tolerating diet. However she did complain of back pain therefore she had a lumbar spine x-ray showed a chronic compression fractures in the lumbar region without any acute pathology. I have talked with the patient's daughter over the phone regarding her hospital diagnosis, treatment she received, CT and ultrasound results, discharge medications, discharge instructions and follow-up plan of care. They have verbalized understanding of this and given patient is clinically stable agreed to take her home with outpatient follow up as mentioned. Consults/Reason for consult Indication: back pain Technique: XY LUMBAR SPINE 3 VIEWXY Comparison: None FINDINGS/IMPRESSION: Lumbar levocurvature. L4 compression deformity with 20% loss height. L1 compression deformity with 20% loss height. T11 compression deformity 50% loss height. These are of indeterminate age. If there is concern for acute fracture recommend obtaining MRI of the thoracic and lumbar spine to evaluate. Moderate to advanced multilevel disc space narrowing within the lumbar spine There is 7 mm anterolisthesis of L4 upon L5. 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 Operations or Procedures Exam: CT CT AB PEL WO CON-NO ORAL OR IV History: intractable N/V, abd pain Comparison Study: None TECHNIQUE: Multidetector CT of the abdomen and pelvis without IV contrast. Axial, coronal and sagittal multiplanar reformats were obtained from the axial data set by the technologist. Radiation Dose Information: CT Dose: CTDI volume is 9.67 mGy. Dose-length product is 593.77 mGy*cm FINDINGS: Bibasilar atelectasis with trace left-sided pleural effusion. Partially visualized heart is unremarkable. Gallstones within a moderately distended gallbladder. Liver, spleen, pancreas and adrenal glands unremarkable. Punctate nonobstructing left renal calculus. Mild left pelviectasis. Bilateral ureters and urinary bladder unremarkable. Uterus and adnexa are unremarkable. There is layering fluid within the gastric fundus. Stomach is otherwise unremarkable. Small bowel loops are fluid-filled and non distended. Appendix is not definitely visualized. Mild wall thickening of the ascending colon. Small to moderate amount of fecal material within the colon. No evidence of intraperitoneal free air or free fluid. No evidence of aortic aneurysm. Mild atherosclerotic calcification of the aorta. No significant lymphadenopathy. Tiny fat containing umbilical hernia. Minimal body wall edema. Diffuse demineralization. Mild loss of superior vertebral body height of L1. Moderate loss of vertebral body height of T7 and T9 with [id number] loss of vertebral body height of T6 and T11. Sclerotic focus of the left L2 vertebral body which may represent a bone island with a blastic lesion not excluded IMPRESSION: Mild wall thickening Distal ascending colon which may be due to inadequate distention with mild Colitis not excluded. Cholelithiasis without evidence for acute cholecystitis. Right upper quadrant ultrasound should be considered for further evaluation. Mild left renal pelviectasis with no obstructing calculus noted. Punctate nonobstructing left renal calculus. Bibasilar atelectasis with trace left-sided pleural effusion. ATED BY: HUMBERTO MARTÍNEZ DO DICTATED DATE/TIME: 11/25/242101 Condition at Discharge: Stable Final Diagnosis/Problems List colitis, back pain Discharge Disposition: Home Discharge Instruct/Medications Diet: Consistent carbohydrate, Cardiac 2g Na,low cholest Activity: No Restrictions, As Tolerated Activity comment: with assistance Follow Up/Referral: PCP next week and GI dr.Grover Farmer after 2 weeks Medications: as prescribed and home meds New Medications: Acetaminophen (Tylenol Extra Strength) 500 Mg Tab 500 MG PO Q8HPRN PRN, #20 TAB Cefdinir (Cefdinir) 300 Mg Cap 1 CAP PO BID, #10 CAP Hydrocodone-Acetaminophen (Hydrocodone Bitartrate/AC 5-325 mg) 1 Tab Tab 1 TAB PO Q8HPRN PRN, #10 TAB Metronidazole (Flagyl) 500 Mg Tab 1 TAB PO BID, #10 TAB Naloxone HCl (Narcan) 4 Mg/0.1 Ml Spr 4 MG NA Q5MINP PRN, #1 SPRAY Ondansetron Odt 4MG Tab (Zofran Po) 4 Mg Tb 4 MG PO Q8HPRN PRN, #14 TAB ODT TAB-DISSOLVE IN MOUTH, THEN SWALLOW Continued Medications: Cholecalciferol (Vitamin D3) 2,000 Unit Tab 1 TAB PO DAILY, #30 TAB 5 Refills Multiple Vitamins W/ Minerals (Centrum) Tab 1 OR, TAB Scheduled Cefdinir (Cefdinir), 1 CAP PO BID Cholecalciferol (Vitamin D3), 1 TAB PO DAILY, (Reported) Metronidazole (Flagyl), 1 TAB PO BID Scheduled PRN Acetaminophen (Tylenol Extra Strength), 500 MG PO Q8HPRN PRN Hydrocodone-Acetaminophen (Hydrocodone Bitartrate/AC 5-325 mg), 1 TAB PO Q8HPRN PRN Naloxone HCl (Narcan), 4 MG NA Q5MINP PRN Ondansetron Odt 4MG Tab (Zofran Po), 4 MG PO Q8HPRN PRN Miscellaneous Medications Multiple Vitamins W/ Minerals (Centrum), 1 OR, (Reported) Discharge Statement: "Patient was advised to return to the ER or call 911 if any headaches, dizziness, shortness of breath, chest pain, abdominal pain, bleeding, fevers, or worsening of medical condition. Patient was counseled about treatment plan, medications, possible side effects, patientverbalized understanding. All questions were answered to the best of my ability. This discharge took greater then 30 minutes in planning, reviewing documentation, counseling the patient, and discussing with other team members." ASSESSMENT ASSESSMENT Assessment colitis, back pain Date of Service: Nov 28, 2024 Billing Provider: LUCRECIA ROQUE MD Common Visit Codes: [id number] DISCH DAY <30MIN LUCRECIA ROQUE MD Nov 28, 2024 11:02
--- NOTE | 2024-11-28 11:16 | DVH ---
Indication: back pain Technique: XY LUMBAR SPINE 3 VIEWXY Comparison: None FINDINGS/IMPRESSION: Lumbar levocurvature. L4 compression deformity with 20% loss height. L1 compression deformity with 20% loss height. T11 com pression deformity 50% loss height. These are of indeterminate age. If there is concern for acute fr acture recommend obtaining MRI of the thoracic and lumbar spine to evaluate. Moderate to advanced multilevel disc space narrowing within the lumbar spine There is 7 mm anterolisthesis of L4 upon L5. 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
[2024-11-28] MEDS ORDERED: ZOFR4T PO (12:07)
[2024-11-28] MEDS: HYDROcodone-ACET 5/325MG TAB PO PRN (12:52)
[2024-11-28 13:00] VITALS: BP 134/57; PULSE 67; RESP 16; TEMP 97.7; O2SAT 98
[2024-11-28 16:48] VITALS: BP 148/92; PULSE 73; RESP 16; TEMP 97.1; O2SAT 94
[2024-11-28 21:00] VITALS: BP 96/45; PULSE 78; RESP 18; TEMP 98.8; O2SAT 93
--- NOTE | 2024-11-28 23:25 | DVHPN2 ---
Progress Note - Dictate Date Seen: Nov 28, 2024 (Late entryPatient seen at 10:00 a.m.) Medical Necessity Reason Pt with a Central, PICC or Fol: No (Susan Benson) Subjective No new complaints, resting comfortably Abdominal pain has resolved patient has mild nausea She is tolerating a diet HIDA scan is negative Patient complains of back pain Patient has underlying dementia and does not remember dates She does not recall having any EGD or colonoscopy Her history of peptic ulcer disease due to her childhood vital signs Vital Sign Date Time Temp Pulse Resp B/P (MAP) Pulse Ox O2 Delivery O2 Flow Rate FiO2 11/28/24 21:00 98.8 78 18 96/45 (62) 93 98.8 11/28/24 20:00 Room Air* 0 21 Total Intake and Output 11/27/24 11/27/24 11/28/24 15:00 23:00 07:00 Intake Total 500 ml 400 ml Output Total 100 ml Balance 400 ml 400 ml medications Current Medications Medications Dose Ordered Sig/Marci Route Start Time Stop Time Status Last Admin Dose Admin Metronidazole 100 ml @ 100 mls/hr Q8HR IV 11/26/24 06:00 11/28/24 20:59 100 MLS/HR Pantoprazole Sodium 40 mg DAILY IV 11/26/24 10:00 11/28/24 14:57 40 MG Acetaminophen/ Hydrocodone Bitart 1 tab Q4HP PRN PO 11/25/24 22:00 11/28/24 12:52 1 TAB Ondansetron HCl 4 mg Q4HP PRN IV 11/25/24 22:00 Acetaminophen 650 mg Q6HP PRN PO 11/25/24 22:00 11/28/24 10:28 650 MG Enoxaparin Sodium 30 mg DAILY SC 11/27/24 10:00 11/28/24 10:30 30 MG Ceftriaxone Sodium 50 ml @ 100 mls/hr DAILY@09 IV 11/27/24 09:00 11/27/24 09:48 100 MLS/HR objective General: NAD, AAO Chest: lung trammell clear to auscultation Heart: RRR, no murmur Abdomen: non-distended, no tenderness to palpation, +BS laboratory and microbiology Laboratory Tests 11/27/24 07:19 Test 11/27/24 07:19 Range/Units Serum Glucose 99 74-106 mg/dL Problems(with codes): (1) Acute kidney injury superimposed on CKD (2) Cholelithiasis (3) Intractable nausea and vomiting (4) Acute colitis Prognosis Plan Patient appears to be stable from a GI point of view Advance diet as tolerated Protonix 40 mg p.o. daily Pain management Discharge planning as per hospitalist Outpatient follow up with me in 4-6 weeks after discharge if any further GI workup is required Plan discussed with: Patient, Other (Dr Shukla) ANABELL HANDY MD Nov 28, 2024 23:25
[2024-11-29 00:58] VITALS: BP 99/45; PULSE 70; RESP 18; TEMP 98.9; O2SAT 94
[2024-11-29 05:00] VITALS: BP 99/48; PULSE 70; RESP 18; TEMP 98.2; O2SAT 93
[2024-11-29 09:00] VITALS: BP 97/37; PULSE 77; RESP 16; TEMP 97.9; O2SAT 97
[2024-11-29 13:00] VITALS: BP 97/35; PULSE 80; RESP 16; TEMP 98.7; O2SAT 95
--- NOTE | 2024-11-29 13:19 | DVHPN2 ---
Subjective She is discharged yesterday after speaking to patient's daughter over the phone. Apparently home health with a walker is not set up therefore patient remains in the hospital. Changes from previous H/P or p: No Changes Objective Vitals Vital Signs Date Time Temp Pulse Resp B/P (MAP) Pulse Ox O2 Delivery O2 Flow Rate FiO2 11/29/24 08:00 Room Air* 0 21 11/29/24 05:00 98.2 70 18 99/48 (65) 93 98.2 Intake/Output Intake and Output 11/29/24 07:00 Intake Total 1100 ml Balance 1100 ml Intake Oral 900 ml IV Total 200 ml # Voids 5 Exam Alert awake oriented to person only. Comfortable in bed without distress. HEENT neck supple no JVD pupils equal round react to light. Heart regular rate and rhythm S1 plus S2 without murmurs. Lungs fair air movement chest tube will expansion. No rales or wheezes. Abdomen is soft nontender nondistended positive bowel sounds. No organomegaly noted. Extremities no edema positive pulses. Medications Current Medications Medications Dose Ordered Sig/Marci Route Start Time Stop Time Status Last Admin Dose Admin Metronidazole 100 ml @ 100 mls/hr Q8HR IV 11/26/24 06:00 11/29/24 06:29 100 MLS/HR Acetaminophen/ Hydrocodone Bitart 1 tab Q4HP PRN PO 11/25/24 22:00 11/28/24 12:52 1 TAB Ondansetron HCl 4 mg Q4HP PRN IV 11/25/24 22:00 Acetaminophen 650 mg Q6HP PRN PO 11/25/24 22:00 11/29/24 09:38 650 MG Enoxaparin Sodium 30 mg DAILY SC 11/27/24 10:00 11/29/24 09:39 30 MG Laboratory Results Laboratory Tests 11/27/24 07:19 Urinalysis Test 11/26/24 21:05 Urine Color Colorless (Yellow) Urine Clarity Clear (Clear) Urine pH 6.5 (5.0-9.0) Urine Specific Hansen 1.006 (1.001-1.035) Urine Protein Negative (Negative) Urine Ketones Negative (Negative) Urine Blood Negative /uL (Negative) Urine Nitrite Negative (Negative) Urine Bilirubin Negative (Negative) Urine Urobilinogen Normal mg/dL (Negative) Urine Leukocyte Esterase Negative /uL (Negative) Urine RBC 1 /hpf (0 - 4) Urine Microscopic WBC 3 /HPF (0-5) Urine Squamous Epithelial Cells None seen /hpf (<5) Urine Bacteria None seen /hpf (None Seen) Urine Glucose Normal mg/dL (Normal) Microbiology Microbiology Date/Time Source Procedure Growth Status 11/25/24 21:39 Blood Blood Culture - Preliminary NO GROWTH AFTER 72 HOURS OF INCUBATION. Resulted Assessment/Plan Assessment/Plan We will DC IV antibiotics Rocephin. Continue Flagyl while she is here. Patient is clinically stable to be discharged home. Talked with the nurse to follow up with social services analyst to arrange walker and discharge her home today. Plan discussed with: Patient, Other My Orders Orders - LUCRECIA ROQUE MD Procedure Category Date Status Time * [employer] CONS 11/29/24 Transmitted Consult 10:30 Problem List: (1) Cholelithiasis (2) Acute colitis (3) Acute kidney injury superimposed on CKD Date of Service: Nov 29, 2024 Billing Provider: LUCRECIA ROQUE MD Common Visit Codes: [id number] INP/OBS CARE(MOD) LUCRECIA ROQUE MD Nov 29, 2024 13:19
[2024-11-29 14:35] VITALS: BP 97/35; PULSE 80; RESP 16; TEMP 98.7; O2SAT 98
--- NOTE | 2024-11-29 16:58 | DVHPN2 ---
Progress Note - Dictate Date Seen: Nov 29, 2024 Medical Necessity Reason Pt with a Central, PICC or Fol: No (Susan Benson) Subjective No new complaints, resting comfortably Abdominal pain has resolved patient has mild nausea She is tolerating a diet HIDA scan is negative Patient complains of back pain Patient has underlying dementia and does not remember dates She does not recall having any EGD or colonoscopy Her history of peptic ulcer disease due to her childhood vital signs Vital Sign Date Time Temp Pulse Resp B/P (MAP) Pulse Ox O2 Delivery O2 Flow Rate FiO2 11/29/24 14:35 98.7 80 16 98 11/29/24 13:00 97/35 (55) 11/29/24 08:00 Room Air* 0 21 Total Intake and Output 11/28/24 11/28/24 11/29/24 15:00 23:00 07:00 Intake Total 1000 ml 100 ml Balance 1000 ml 100 ml medications Current Medications Medications Dose Ordered Sig/Marci Route Start Time Stop Time Status Last Admin Dose Admin Metronidazole 100 ml @ 100 mls/hr Q8HR IV 11/26/24 06:00 11/29/24 14:00 100 MLS/HR Acetaminophen/ Hydrocodone Bitart 1 tab Q4HP PRN PO 11/25/24 22:00 11/28/24 12:52 1 TAB Ondansetron HCl 4 mg Q4HP PRN IV 11/25/24 22:00 Acetaminophen 650 mg Q6HP PRN PO 11/25/24 22:00 11/29/24 09:38 650 MG Enoxaparin Sodium 30 mg DAILY SC 11/27/24 10:00 11/29/24 09:39 30 MG objective General: NAD, AAO Chest: lung trammell clear to auscultation Heart: RRR, no murmur Abdomen: non-distended, no tenderness to palpation, +BS laboratory and microbiology Laboratory Tests 11/27/24 07:19 Test 11/27/24 07:19 Range/Units Serum Glucose 99 74-106 mg/dL Problems(with codes): (1) Acute kidney injury superimposed on CKD (2) Cholelithiasis (3) Intractable nausea and vomiting Prognosis Plan Discharge planning is in progress Awaiting home health to arrange walker Patient appears to be stable from a GI point of view Advance diet as tolerated Protonix 40 mg p.o. daily Plan discussed with: Other (Dr Shukla) ANABELL HANDY MD Nov 29, 2024 16:58
[2024-11-30] MEDS ORDERED: HYDR-4902 PO (10:14)
[2024-11-30] MEDS ORDERED: NALO4SPR2 (10:14)
== END 2024-11-29 16:40 | disposition home or self-care (01) | DRG 372 ==
LOC: ER 18:35 → OVERFLOW 21:54 → CENTRAL 23:51 → EAST 11-26 17:55
PROVIDERS: ADMIT Hospitalist; ATTEND Hospitalist
DX: A04.9 Bacterial intestinal infection, unspecified (principal); M48.56XA Collapsed vertebra, not elsewhere classified, lumbar region, initial encounter for fracture; N17.9 Acute kidney failure, unspecified; K80.20 Calculus of gallbladder without cholecystitis without obstruction; N18.9 Chronic kidney disease, unspecified; F03.90 Unspecified dementia, unspecified severity, without behavioral disturbance, psychotic disturbance, mood disturbance, and anxiety; G89.29 Other chronic pain; K21.9 Gastro-esophageal reflux disease without esophagitis; M46.1 Sacroiliitis, not elsewhere classified; M85.80 Other specified disorders of bone density and structure, unspecified site; Z87.11 Personal history of peptic ulcer disease; Z79.899 Other long term (current) drug therapy
CPT/HCPCS: 36415; 72100; 74176; 76705; 78226; 80048; 80076; 81001; 83605; 85025; 86850; 86900; 86901; 87040; 97110; 97116; 97163; 97530; G0378; J2405; J2470; J3490

== ENCOUNTER 2024-12-02 13:51 | Inpatient (IN) | payer MEDICARE, MEDICAID ==
[~2024-12-02] VITALS: Ht 154.9 cm; Wt 71.0 kg
[~2024-12-02 13:51] MED LIST: ACET-1304 PO; CEFD300C2 PO; CHOL20007 PO; HYDR-4902 PO; METR-344 PO; MULT-732 OR; NALO4SPR2; ZOFR4T PO
--- NOTE | 2024-12-02 14:36 | ED.PDOC ---
Back pain HPI HPI Comments 89y F who presents to the ED for chief complaint of back pain. Pt presents with family member who states pt was discharged from for abdominal pain on Saturday, (2 days prior) and has since been having exacerbation of her chronic mid back pain. Pt states her back pain has been present for many years, sharp in nature, stating she has had it for the past 5 years. Pt is taking prescribed pain medications but states it has only been helping mildly. Pt states the pain is 10/10, constant, with no associated exacerbating or relieving factors. Pt family member states pt normally ambulates on her own but states over the past few weeks, she has needed the use of a walker to ambulate. Pt denies any recent fall injury. Pt otherwise denies any associated problems using restroom or with bowel movements. PT otherwise has stable vitals in the ED. Chief Complaint: Back pain Time Seen by : 14:00 Reviewed Notes: Medications, Allergies Allergies: Coded Allergies: NO KNOWN ALLERGIES (Unverified , 11/25/24) Home Meds Active Scripts Naloxone HCl (Narcan) 4 Mg/0.1 Ml Spr, 4 MG NA Q5MINP PRN, #1 SPRAY Prov:LUCRECIA ROQUE MD 11/30/24 Hydrocodone-Acetaminophen (Hydrocodone Bitartrate/AC 5-325 mg) 1 Tab Tab, 1 TAB PO Q8HPRN PRN, #10 TAB Prov:LUCRECIA ROQUE MD 11/30/24 Ondansetron Odt 4MG Tab (ZOFRAN PO) 4 Mg Tb, 4 MG PO Q8HPRN PRN, #14 TAB ODT TAB-DISSOLVE IN MOUTH, THEN SWALLOW Prov:LUCRECIA ROQUE MD 11/28/24 Metronidazole (Flagyl) 500 Mg Tab, 1 TAB PO BID, #10 TAB Prov:LUCRECIA ROQUE MD 11/28/24 Cefdinir (Cefdinir) 300 Mg Cap, 1 CAP PO BID, #10 CAP Prov:LUCRECIA ROQUE MD 11/28/24 Acetaminophen (Tylenol Extra Strength) 500 Mg Tab, 500 MG PO Q8HPRN PRN, #20 TAB Prov:LUCRECIA ROQUE MD 11/28/24 Reported Medications Cholecalciferol (VITAMIN D3) 2,000 Unit Tab, 1 TAB PO DAILY, #30 TAB 5 Refills 11/26/24 Multiple Vitamins W/ Minerals (Centrum) Tab, 1 OR, TAB 11/26/24 Information Source: Patient, Relative Mode of Arrival: Wheelchair Past Medical History PAST MEDICAL HISTORY: Arthritis, Dementia, GERD, PUD Surgical History: Appendectomy 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 Pertinent EXHAUST EQUIPMENT OPERATOR History Family History Family History: Reviewed,noncontributory to illness, No family hx of Cancer, No family hx of DM, No family hx of Heart elicoe, No family hx of HTN, No family hx ofKidney eliceo, No family hx of Liver eliceo, No family hx of Lung eliceo, No family hx of Stroke Social History Smoker: Non-Smoker Alcohol: Denies ETOH Use Drugs: Denies Drug Use Constitutional: denies: chills, diaphoresis, fatigue, fever, malaise, sweats, weakness, others EENTM: denies: blurred vision, double vision, ear bleeding, ear discharge, ear drainage, ear pain, ear ringing, eye pain, eye redness, hearing loss, mouth pain, mouth swelling, nasal discharge, nose bleeding, nose congestion, nose pain, photophobia, tearing, throat pain, throat swelling, voice changes, others Respiratory: denies: cough, hemoptysis, orthopnea, SOB at rest, shortness of breath, SOB with excertion, stridor, wheezing, others Cardiovascular: denies: chest pain, dizzy spells, diaphoresis, Dyspnea on exertion, edema, irregular heart beat, left arm pain, lightheadedness, palpitations, PND, syncope, others Gastrointestinal: denies: abdomen distended, abdominal pain, blood streaked bowels, constipated, diarrhea, dysphagia, difficulty swallowing, hematemesis, melena, nausea, poor appetite, poor fluid intake, rectal bleeding, rectal pain, vomiting, others Genitourinary: denies: abnormal vagina bleeding, burning, dyspareunia, dysuria, flank pain, frequency, hematuria, incontinence, pain, , vagina discharge, urgency, others Neurological: denies: dizziness, fainting, headache, left sided numbness, left sided weakness, numbness, paresthesia, pre-existing deficit, right sided numbness, right sided weakness, seizure, speech problems, tingling, tremors, weakness, others Musculoskeletal: reports: back pain; denies: gout, joint pain, joint swelling, muscle pain, muscle stiffness, neck pain, others Integumetry: denies: bruises, change in color, change in hair/nails, dryness, laceration, lesions, lumps, rash, wounds, others Allergic/Immunocompromised: denies: Difficulty Healing, Frequent Infections, Hives, Itching, others Hematologic/Lymphatic: denies: anemia, blood clots, easy bleeding, easy bruising, swollen glands, others Endocrine: denies: excessive hunger, excessive sweating, excessive thirst, excessive urination, flushing, intolerance to cold, intolerance to heat, unexplained weight gain, unexplained weight loss, others Psychiatric: denies: anxiety, bipolar disorder, depression, hopeless, panic disorder, schizophrenia, sleepless, suicidal, others All Other Systems: Reviewed and Negative Physical Exam General Appearance: Mild Distress HEENT: Other (Pupils and face symmetric. Moist mucous membranes.) Neck: Full Range of Motion, Non-Tender, Normal Inspection, Supple Respiratory: Lungs Clear, No Accessory Muscle Use, No Respiratory Distress, Normal Breath Sounds Cardiovascular: No Edema, No JVD, Regular Rate/Rhythm Breast Exam: Deferred Gastrointestinal: Non Tender, Soft Genitalia: Deferred Pelvic: Deferred Rectal: Deferred Extremities: Normal inspection, Normal range of motion, Non-tender, No pedal edema Musculoskeletal : Apperance: Tenderness (Midthoracic midline and paraspinal tenderness to palpation. No crepitus or step-off.) Neurologic: Alert (Oriented x3), Normal Affect, Normal Mood, Other (No gross focal deficit) Cerebellar Function: NOT DONE Reflexes: NOT DONE Skin: Dry, Normal Color, Warm Lymphatic: NOT DONE Was a procedure done? Was a procedure done?: No EKG EKG : Comments Sinus rhythm, rate 75, normal intervals, left axis deviation, possible old inferior infarct, nonspecific T change. Back Pain Differential Dx Differential Diagnosis: Fracture, Musculoskeletal Pain Other Differential Diagnosis disc disease, among others X-Ray, Labs, Meds, VS Vital Signs Date Time Temp Pulse Resp B/P (MAP) Pulse Ox O2 Delivery O2 Flow Rate FiO2 12/02/24 21:37 20 20 147/70 12/02/24 21:28 98.7 90 20 147/70 (95) 98 98.7 12/02/24 20:13 97.9 84 16 136/66 (89) 94 97.9 12/02/24 19:08 97.0 62 16 138/54 (82) 97 97.0 12/02/24 16:43 72 16 136/65 12/02/24 16:29 74 18 138/55 12/02/24 16:27 74 18 138/55 (82) 12/02/24 15:13 97.7 84 17 111/54 (73) 96 97.7 12/02/24 15:13 Room Air* 0 21 12/02/24 15:13 76 17 111/54 12/02/24 14:17 75 12/02/24 14:14 98.7 77 17 115/60 (78) 97 98.7 Lab Test 12/02/24 15:38 12/02/24 14:43 12/02/24 14:13 Range/Units Troponin I High Sensitivity 11 11 </=34 ng/L White Blood Count 10.3 4.4-10.8 10^3/uL Red Blood Count 3.96 L 4.0-5.20 10^6/uL Hemoglobin 12.6 12.2-16.2 g/dL Hematocrit 37.8 36.0-46.0 % Mean Corpuscular Volume 95.3 80.0-100.0 fL Mean Corpuscular Hemoglobin 31.9 28.0-32.0 pg Mean Corpuscular Hemoglobin Concent 33.4 32.0-36.0 g/dL Red Cell Distribution Width 14.1 11.8-14.3 % Platelet Count 339 140-450 10^3/uL Mean Platelet Volume 7.3 6.9-10.8 fL Neutrophils (%) (Auto) 77.3 37.0-80.0 % Lymphocytes (%) (Auto) 11.8 10.0-50.0 % Monocytes (%) (Auto) 8.3 0.0-12.0 % Eosinophils (%) (Auto) 1.8 0.0-7.0 % Basophils (%) (Auto) 0.8 0.0-2.0 % Neutrophils # (Auto) 7.9 1.6-8.6 10 ^3/uL Lymphocytes # (Auto) 1.2 0.4-5.4 10 ^3/uL Monocytes # (Auto) 0.9 0-1.3 10 ^3/uL Eosinophils # (Auto) 0.2 0-0.8 10 ^3/uL Basophils # (Auto) 0.1 0-0.2 10 ^3/uL Nucleated Red Blood Cells 0.0 % Sodium Level 140 136-145 mmol/L Potassium Level 3.8 3.5-5.1 mmol/L Chloride Level 106 98-107 mmol/L Carbon Dioxide Level 24 20-31 mmol/L Anion Gap 10 5-15 Blood Urea Nitrogen 25 H 9-23 mg/dL Creatinine 1.20 H 0.550-1.02 mg/dL Glomerular Filtration Rate Calc 43 >90 mL/min BUN/Creatinine Ratio 20.8 H 10.0-20.0 Serum Glucose 138 H 74-106 mg/dL Lactic Acid Level 1.8 0.4-2.0 mmol/L Calcium Level 9.7 8.7-10.4 mg/dL Total Bilirubin 0.5 0.2-1.0 mg/dL Aspartate Amino Transferase (AST) 30 13-40 U/L Alanine Aminotransferase (ALT) 18 7-40 U/L Alkaline Phosphatase 62 46-116 U/L Total Protein 6.2 5.7-8.2 g/dL Albumin 3.7 3.2-4.8 g/dL POC Glucose 116 H 70-106 mg/dl Current Medications Medications (Trade) Dose Ordered Sig/Marci Route Start Time Stop Time Status Last Admin Morphine Sulfate 2 mg ONCE ONCE IV 12/02/24 14:30 12/02/24 14:31 DC 12/02/24 15:13 Ondansetron HCl (Zofran) 4 mg ONCE ONCE IV 12/02/24 14:30 12/02/24 14:31 DC 12/02/24 15:07 Sodium Chloride 1,000 ml @ 1,000 mls/hr Q1H ONCE IV 12/02/24 14:30 12/02/24 15:29 DC 12/02/24 15:13 Morphine Sulfate 4 mg ONCE ONCE IV 12/02/24 16:30 12/02/24 16:31 DC 12/02/24 16:43 Morphine Sulfate 4 mg ONCE ONCE IV 12/02/24 20:45 12/02/24 20:46 DC 12/02/24 21:37 [facility] [id number] [place] [id number] Ph: [phone] DIAGNOSTIC IMAGING Diagnostic Imaging Report : [id number] Signed PATIENT: MARIVEL TIDWELL ACCT: [id number] UNIT: [id number] : 1935 LOC: ER ROOM / BED: / AGE / SEX: 89 / F ADM STATUS: REG ER SERVICE 1431 ORDERING PHYSICIAN: COLE LEON MD PROCEDURE(s): TS2CT - THORACIC SPINE WO CONTRAS REASON: pain ORDER NUMBER(s): [id number], ACCESSION NUMBER(s): [id number] EXAM: CT THORACIC SPINE WO CONTRAS HISTORY: pain COMPARISON: None CTDIvol 20.05 mGy, DLP 641.12 mGy*cm. TECHNIQUE: Multiple axial CT images of the spine were obtained using bone algorithm. Axial and coronal reformatting was done. Bone and soft tissue windows were reviewed. FINDINGS: No evidence of definite acute fracture, spinal dislocation, or significant appearing acute subluxation is seen. Diffuse osteopenia. Multilevel degenerative changes of the spine. Exaggerated kyphosis. Chronic appearing multilevel [id number] compression deformities are present most prominent at T5, T7, T9 and T11. Trace left pleural effusion. Cardiomegaly. IMPRESSION: No definite CT evidence of acute fracture or dislocation of the bony thoracic spine. Osteopenia with multilevel chronic appearing compression fractures of the thoracic spine. ATED BY: NILO WHEATLEY MD DICTATED DATE/TIME: 12/02/24 153 SIGNED BY: NILO WHEATLEY MD SIGNED DATE/TIME: 12/02/24 153 CC: X-Ray, Labs, Meds, VS Comment 89-year-old female with history of arthritis, dementia, GERD, PUD and recent hospitalization for colitis complaining of severe back pain unresponsive to [place] Vitals unremarkable Exam remarkable for midthoracic midline and paraspinal tenderness to palpation Rhythm strip independently interpreted by me: Sinus rhythm, rate 75, no ectopy. CT thoracic spine IMPRESSION: No definite CT evidence of acute fracture or dislocation of the bony thoracic spine. Osteopenia with multilevel chronic appearing compression fractures of the thoracic spine. CBC unremarkable, comprehensive metabolic panel remarkable for BUN 25, creatinine 1.2, BNP and troponins negative, UA pending Patient treated with the following in the ED: 1 L 0.9 normal saline IV bolus, morphine 2 mg IV, Zofran 4 mg IV, morphine 4 mg IV On re-evaluation after the 1st dose of morphine, patient states it only transiently improved her pain. An additional dose of morphine was ordered. Patient is already taking [place] at home without relief. Plan is to admit the patient for pain control and possible spine MRI and PT/OT evaluation. Time of 1ST Reevaluation: 16:58 Reevaluation 1ST: Improved Patient Education/Counseling: Diagnosis, Treatment Family Education/Counseling: Diagnosis, Treatment SEPSIS Sepsis Screen Date sepsis recognized/suspect: Dec 02, 2024 Time Sepsis recognized/suspect: 1415 Recent Procedure: No On Antibiotic Therapy: No Respiratory Rate >20: No Heart Rate >90: No Temp<36 C (96.8 F) or >38.3 C: No SBP <90 or MAP <65 mmHG: No New Acute Mental Status Change: No Is the patient on CPAP, BIPAP,: No Physician Orders Electrocardigram (12/02/24 14:21) Troponin-I Hs (12/03/24 00:00) Urinalysis (12/02/24 14:19) Thoracic Spine Wo Contras (12/02/24 14:31) Vital Signs Date Time Temp Pulse Resp B/P (MAP) Pulse Ox O2 Delivery O2 Flow Rate FiO2 12/02/24 21:37 20 20 147/70 12/02/24 21:28 98.7 90 20 147/70 (95) 98 98.7 12/02/24 20:13 97.9 84 16 136/66 (89) 94 97.9 12/02/24 19:08 97.0 62 16 138/54 (82) 97 97.0 12/02/24 16:43 72 16 136/65 12/02/24 16:29 74 18 138/55 12/02/24 16:27 74 18 138/55 (82) 12/02/24 15:13 97.7 84 17 111/54 (73) 96 97.7 12/02/24 15:13 Room Air* 0 21 12/02/24 15:13 76 17 111/54 12/02/24 14:17 75 12/02/24 14:14 98.7 77 17 115/60 (78) 97 98.7 Laboratory Tests Test 12/02/24 14:43 Lactic Acid Level 1.8 mmol/L (0.4-2.0) White Blood Count 10.3 10^3/uL (4.4-10.8) Medications Medications Dose Ordered Sig/Marci Route Start Time Stop Time Status Last Admin Dose Admin Morphine Sulfate 2 mg ONCE ONCE IV 12/02/24 14:30 12/02/24 14:31 DC 12/02/24 15:13 Morphine Sulfate 4 mg ONCE ONCE IV 12/02/24 16:30 12/02/24 16:31 DC 12/02/24 16:43 Morphine Sulfate 4 mg ONCE ONCE IV 12/02/24 20:45 12/02/24 20:46 DC 12/02/24 21:37 Ondansetron HCl 4 mg ONCE ONCE IV 12/02/24 14:30 12/02/24 14:31 DC 12/02/24 15:07 Sodium Chloride 1,000 ml @ 1,000 mls/hr Q1H ONCE IV 12/02/24 14:30 12/02/24 15:29 DC 12/02/24 15:13 Departure 1 Departure Time of Disposition: 17:00 Impression: Primary Impression: Intractable back pain Disposition: ADMITTED INPATIENT Admit to: Med Surg Condition: Fair Critical Care Note Critical Care Time?: No Stability Stability form required: No Heart Score Heart Score: Heart Score Response (Comments) Value History N/A 0 EKG N/A 0 Age N/A 0 Risk Factors N/A 0 Troponin N/A 0 Total 0 I personally scribed for COLE LEON MD ([email or web address]) on 12/02/24 at 14:36. Electronically submitted by Rajat Ramírez ([facility]). I personally scribed for COLE LEON MD (PAULALORENZO) on 12/02/24 at 14:51. Electronically submitted by Rajat Ramírez ([facility]). I personally scribed for COLE LEON MD (TRICIA) on 12/02/24 at 16:09. Electronically submitted by Rajat Ramírez ([facility]). COLE LEON MD Dec 02, 2024 14:36
[2024-12-02] MEDS: ONDANSETRON HCL 4 MG/2 ML VIAL IV ONE (15:07)
[2024-12-02 15:12] LABS: Hematocrit 37.8 % (36.0-46.0); Hemoglobin 12.6 g/dL (12.2-16.2); Mean Corpuscular Hemoglobin 31.9 pg (28.0-32.0); Mean Corpuscular Volume 95.3 fL (80.0-100.0); Nucleated Red Blood Cells % 0.0 %
[2024-12-02] MEDS: SODIUM CHLORIDE 0.9% 1,000 ML IV ONE (15:13)
[2024-12-02] MEDS: MORPHINE SULFATE INJ 2 MG/ml SYRG IV ONE (15:13)
[2024-12-02 15:27] LABS: Alanine Aminotransferase 18 U/L (7-40); Albumin 3.7 g/dL (3.2-4.8); Alkaline Phosphatase 62 U/L (46-116); Anion Gap 10 (5-15); BUN/Creatinine Ratio 20.8 (10.0-20.0); Bilirubin, Total 0.5 mg/dL (0.2-1.0); Calcium 9.7 mg/dL (8.7-10.4); Carbon Dioxide 24 mmol/L (20-31); Chloride 106 mmol/L (98-107); Potassium 3.8 mmol/L (3.5-5.1); Sodium 140 mmol/L (136-145); Total Protein 6.2 g/dL (5.7-8.2)
[2024-12-02 15:28] LABS: Blood Urea Nitrogen 25 mg/dL (9-23); Glucose 138 mg/dL (74-106)
--- NOTE | 2024-12-02 15:34 | DVH ---
EXAM: CT THORACIC SPINE WO CONTRAS HISTORY: pain COMPARISON: None CTDIvol 20.05 mGy, DLP 641.12 mGy*cm. TECHNIQUE: Multiple axial CT images of the spine were obtained using bone algorithm. Axial and rosas l reformatting was done. Bone and soft tissue windows were reviewed. FINDINGS: No evidence of definite acute fracture, spinal dislocation, or significant appearing acute subluxatio n is seen. Diffuse osteopenia. Multilevel degenerative changes of the spine. Exaggerated kyphosis. Chronic ap pearing multilevel iima-sx-zvoqqzzi compression deformities are present most prominent at T5, T7, T9 and T11. Trace left pleural effusion. Cardiomegaly. IMPRESSION: No definite CT evidence of acute fracture or dislocation of the bony thoracic spine. Osteopenia with multilevel chronic appearing compression fractures of the thoracic spine.
[2024-12-02] MEDS: MORPHINE SULFATE 4 MG/ML SYR/VIAL IV ONE ×2 (16:43→21:37)
--- NOTE | 2024-12-02 23:43 | DVHHP2 ---
History of Present Illness History of Present Illness This a 89-year-old female with past medical history Arthritis, Dementia, GERD, PUD, Appendicectomy came to the ED with the complain of severe back pain for 1 day which is localized, 7/10 intensity, aggravated on standing or walking, dull in nature, no radiation and took Tylenol which helps a little. No recent history of fall, trauma, MVA. Patient usually ambulates at home without any d evice but last 4 days she used to walk with walker. Patient having recent admission on 11/25/2024 with colitis and discharged with antibiotic. CT abdomen and pelvis without contrast on 11/25/2024-Mild wall thickening Distal ascending colon which may be due to inadequate distention with mild Colitis . Cholelithiasis without evidence for acute cholecystitis. Mild left renal pelvie ctasis with no obstructing calculus noted. Punctate nonobstructing left renal calculus. Right upper quadrant ultrasound -cholelithiasis. Patient daughter Jaz accompanied with her in ER. Currently denies any chest pain, SOB, cough, headache, fever, dysuria, abdominal pain, nausea vomiting, diarrhea. PAST MEDICAL HISTORY: Arthritis, Dementia, GERD, PUD Surgical History: Appendectomy [employer] History: No Pertinent [employer] History Family History: noncontributory Alcohol: Denies ETOH Use Drugs: Denies Drug Use Allergy: No known allergy Review of Systems Constitutional: No: Fever, Chills, Sweats, Weakness, Malaise, Other Eyes: No: Pain, Vision change, Conjunctivae inflammation, Eyelid inflammation, Other, Redness ENT: No: Ear pain, Ear discharge, Nose pain, Nose discharge, Nose congestion, Mouth pain, Mouth swelling, Throat pain, Throat swelling, Other Respiratory: No: Cough, Dry, Shortness of breath, SOB with excertion, Wheezing, Hemoptysis, Pleuritic Pain, Sputum, Wheezing, Other Cardiovascular: No: Chest Pain, Palpitations, Orthopnea, Paroxysmal Noc. Dyspnea, Edema, Lt Headedness, Other Gastrointestinal: No: Nausea, Vomiting, Abdominal Pain, Diarrhea, Constipation, Melena, Hematochezia, Other Genitourinary: No Dysuria, No Frequency, No Incontinence, No Hematuria, No Retention, No Other Musculoskeletal: back pain; No: other, neck pain, shoulder pain, arm pain, hand pain, leg pain, foot pain Skin: No: Rash, Lesions, Jaundice, Bruising, Other Allergies: Coded Allergies: NO KNOWN ALLERGIES (Unverified , 11/25/24) Exam Vital Signs Vital Signs Date Time Temp Pulse Resp B/P (MAP) Pulse Ox O2 Delivery O2 Flow Rate FiO2 12/02/24 21:37 20 20 147/70 12/02/24 21:28 98.7 98 98.7 12/02/24 15:13 Room Air* 0 21 General Appearance: Alert, Oriented X3, Cooperative HEENT: Atraumatic, PERRLA, EOMI Respiratory: Clear to auscultation, Normal air movement Cardiovascular: Regular rate, Normal S1, Normal S2 Abdominal: Normal bowel sounds, Soft, No tenderness Extremities: No clubbing, No cyanosis, No edema, No tenderness/swelling Skin: No rashes, No breakdown Neuro: Normal speech, Sensation intact, Other (Gait instability) Labs/Xrays Labs Test 12/02/24 15:38 12/02/24 14:43 12/02/24 14:13 Range/Units Troponin I High Sensitivity 11 </=34 ng/L White Blood Count 10.3 4.4-10.8 10^3/uL Red Blood Count 3.96 L 4.0-5.20 10^6/uL Hemoglobin 12.6 12.2-16.2 g/dL Hematocrit 37.8 36.0-46.0 % Mean Corpuscular Volume 95.3 80.0-100.0 fL Mean Corpuscular Hemoglobin 31.9 28.0-32.0 pg Mean Corpuscular Hemoglobin Concent 33.4 32.0-36.0 g/dL Red Cell Distribution Width 14.1 11.8-14.3 % Platelet Count 339 140-450 10^3/uL Mean Platelet Volume 7.3 6.9-10.8 fL Neutrophils (%) (Auto) 77.3 37.0-80.0 % Lymphocytes (%) (Auto) 11.8 10.0-50.0 % Monocytes (%) (Auto) 8.3 0.0-12.0 % Eosinophils (%) (Auto) 1.8 0.0-7.0 % Basophils (%) (Auto) 0.8 0.0-2.0 % Neutrophils # (Auto) 7.9 1.6-8.6 10 ^3/uL Lymphocytes # (Auto) 1.2 0.4-5.4 10 ^3/uL Monocytes # (Auto) 0.9 0-1.3 10 ^3/uL Eosinophils # (Auto) 0.2 0-0.8 10 ^3/uL Basophils # (Auto) 0.1 0-0.2 10 ^3/uL Nucleated Red Blood Cells 0.0 % Sodium Level 140 136-145 mmol/L Potassium Level 3.8 3.5-5.1 mmol/L Chloride Level 106 98-107 mmol/L Carbon Dioxide Level 24 20-31 mmol/L Anion Gap 10 5-15 Blood Urea Nitrogen 25 H 9-23 mg/dL Creatinine 1.20 H 0.550-1.02 mg/dL Glomerular Filtration Rate Calc 43 >90 mL/min BUN/Creatinine Ratio 20.8 H 10.0-20.0 Serum Glucose 138 H 74-106 mg/dL Lactic Acid Level 1.8 0.4-2.0 mmol/L Calcium Level 9.7 8.7-10.4 mg/dL Total Bilirubin 0.5 0.2-1.0 mg/dL Aspartate Amino Transferase (AST) 30 13-40 U/L Alanine Aminotransferase (ALT) 18 7-40 U/L Alkaline Phosphatase 62 46-116 U/L Total Protein 6.2 5.7-8.2 g/dL Albumin 3.7 3.2-4.8 g/dL POC Glucose 116 H 70-106 mg/dl SEPSIS Sepsis Screen Date sepsis recognized/suspect: Dec 02, 2024 Time Sepsis recognized/suspect: 1415 Recent Procedure: No On Antibiotic Therapy: No Respiratory Rate >20: No Heart Rate >90: No Temp<36 C (96.8 F) or >38.3 C: No SBP <90 or MAP <65 mmHG: No New Acute Mental Status Change: No Is the patient on CPAP, BIPAP,: No Physician Orders Admit (12/02/24 23:39) Nitroglycerin Sublingual (Ntrostat Subli (12/02/24 23:45) Morphine Sulfate Injection (12/02/24 23:45) Regular Diet (12/03/24 Breakfast) Vital Signs Date Time Temp Pulse Resp B/P (MAP) Pulse Ox O2 Delivery O2 Flow Rate FiO2 12/02/24 21:37 20 20 147/70 12/02/24 21:28 98.7 90 20 147/70 (95) 98 98.7 12/02/24 20:13 97.9 84 16 136/66 (89) 94 97.9 12/02/24 19:08 97.0 62 16 138/54 (82) 97 97.0 12/02/24 16:43 72 16 136/65 12/02/24 16:29 74 18 138/55 12/02/24 16:27 74 18 138/55 (82) Laboratory Tests Test 12/02/24 14:43 Lactic Acid Level 1.8 mmol/L (0.4-2.0) White Blood Count 10.3 10^3/uL (4.4-10.8) Medications Medications Dose Ordered Sig/Marci Route Start Time Stop Time Status Last Admin Dose Admin Morphine Sulfate 2 mg ONCE ONCE IV 12/02/24 14:30 12/02/24 14:31 DC 12/02/24 15:13 2 MG Morphine Sulfate 4 mg ONCE ONCE IV 12/02/24 16:30 12/02/24 16:31 DC 12/02/24 16:43 4 MG Morphine Sulfate 4 mg ONCE ONCE IV 12/02/24 20:45 12/02/24 20:46 DC 12/02/24 21:37 4 MG Ondansetron HCl 4 mg ONCE ONCE IV 12/02/24 14:30 12/02/24 14:31 DC 12/02/24 15:07 4 MG Sodium Chloride 1,000 ml @ 1,000 mls/hr Q1H ONCE IV 12/02/24 14:30 12/02/24 15:29 DC 12/02/24 15:13 1,000 MLS/HR Assessment/Plan Assessment/Plan # Intractable back pain due to cervical compression fracture -Patient came with severe back pain -Denies any fever, no leukocytosis -CT cervical spine: No definite CT evidence of acute fracture or dislocation of the bony thoracic spine. Osteopenia with multilevel chronic appearing compression fractures of the thoracic spine. Multilevel [id number]-lm-lhrevdrf compression deformities are present most prominent at T5, T7, T9 and T11. -In ED, received morphine, NSS, ondansetron -Troponin x2 negative (11>:11). Lactic acid 1.0 -EKG: Sinus rhythm, HR 75, QTC 411 -[place] 5-325 mg p.o. q.6 p.r.n. 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 # OBESITY, BMI 26.6 -Lifestyle modification Diet: Regular GI prophylaxis: Famotidine 20 mg p.o. b.i.d. DVT prophylaxis: Lovenox 30 mg sc daily Goals of care discussions, more than 28 minute spent with patient. Full code status. Case discussed with Dr. Dacosta. Plan discussed with: Patient, Other (Daughter Jaz, nurse) My Orders Orders - JELLY FLORES Procedure Category Date Status Time Admit ADMIT 12/02/24 Transmitted 23:39 Nitroglycerin PHA 12/02/24 Transmitted Sublingual (Ntrostat 23:45 Morphine Sulfate PHA 12/02/24 Transmitted Injection 23:45 Regular Diet DIET 12/03/24 Verified Breakfast Date of Service: Dec 02, 2024 Billing Provider: MARGUERITE DACOSTA MD Common Visit Codes: [id number] INP/OBS CARE (HIGH) Secondary Visit Codes: [id number] CARE PLAN 30 MINUTES JELLY FLORES Dec 02, 2024 23:43
[2024-12-02] MEDS ORDERED: NITROGLYCERIN 0.4 MG SL TAB SL PRN (23:45)
[2024-12-03] MEDS ORDERED: ACETAMINOPHEN 325 MG TAB PO PRN (00:30)
[2024-12-03] MEDS: MORPHINE SULFATE INJ 2 MG/ml SYRG IV PRN (02:21)
[2024-12-03] MEDS: SODIUM CHLORIDE 0.9% 1,000 ML IV ONE (03:03)
[2024-12-03] MEDS: HYDROcodone-ACET 5/325MG TAB PO PRN (04:46)
[2024-12-03] MEDS: ONDANSETRON ODT 4 MG TAB PO PRN (05:41)
[2024-12-03 06:00] VITALS: BP 101/40; PULSE 87; RESP 12; TEMP 97.6; O2SAT 92
[2024-12-03 07:30] VITALS: PULSE 68
--- NOTE | 2024-12-03 09:53 | ECG ---
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
[2024-12-03 14:38] VITALS: BP 135/84; PULSE 66; RESP 16; TEMP 98; O2SAT 96
--- NOTE | 2024-12-03 14:49 | DVHPNRES ---
Progress Note Date Seen: Dec 03, 2024 Resident Creating Document: GUERRERO MONK RESIDENT Medical Necessity Reason Pt with a Central, PICC or Fol: No Subjective Review of Systems Patient is an 89 year old female with prior medical history of chronic back pain, osteopenia, dementia, GERD, and PUD who presented to the ED with chief complaint of back pain. Patient is states that she has had intermittent back pain for many at least the last five years, but in the last two weeks it has increased in intensity. She state describes the pain dull, localized in the upper back, nonradiating, with a usual intensity of 5/10 but has intensified to 7/10, aggravated by physical activity, and mildly reduced with acetaminophen. She denies recent falls or trauma. Initial labs show WBC 10.3, Hb 12.6, HCT 37.8, PLT 339, Sodium 144, potassium 3.8, and creatinine 1.20. Thoracic Spine CT shows no definite CT evidence of acute fracture or dislocation of the bony thoracic spine, difuse osteopenia, multilevel degenerative changes of the spine, exaggerated kyphosis, chronic appearing multilevel mild to moderate compression at T5, T7, T9, and T11. Patient was admitted for further monitoring and work up. Surgical: Appendectomy Personal: Patient denies tobacco, drug, and alcohol use. States she lives with her granddaughter, who along with her daughter, is her primary care analyst. Patients states she feels safe. Patient seen at bedside. She is oriented in person, place, and time. She refers persistent localized back pain, denies fever, nausea, vomiting, urinary or fecal incontinence, lower extremity weakness, numbness, or any other symptoms. She states that she usually ambulates with special-cushion shoes and a cane, but in the last week has had to use a walker for increased support, how ever she is still able to ambulate. Her daughter at bedside, Jaz, states that the patient has history of multiple vertebral fractures, secondary to osteopenia. The patient was previously followed by an orthopedist and treated with Tymlos injections, however she has not been seen since moving to the area a few months ago. We adjusted her pain regimen and will continue to monitor. Review of systems: Constitutional: Denies weight loss, fever and chills. HEENT: Denies changes in vision and hearing. Respiratory: Denies shortness of breath and cough Cardiovascular: Denies chest discomfort or palpitations GI: Denies abdominal distention, abdominal pain, diarrhea : Denies dysuria and urinary frequency. Musculoskeletal: Refers localized back pain Skin: Denies rash and pruritus. Neurological: denies dizziness headache vision or hearing problems . Objective vital signs Vital Sign Date Time Temp Pulse Resp B/P (MAP) Pulse Ox O2 Delivery O2 Flow Rate FiO2 12/03/24 12:05 88 12/03/24 12:00 98.2 16 114/48 (70) 95 98.2 12/03/24 07:30 Room Air* 0 21 Total Intake and Output 12/02/24 12/02/24 12/03/24 15:00 23:00 07:00 Intake Total 1000 ml Balance 1000 ml medications Current Medications Medications Dose Ordered Sig/Marci Route Start Time Stop Time Status Last Admin Dose Admin Nitroglycerin 0.4 mg Q5MINP PRN SL 12/02/24 23:45 Morphine Sulfate 2 mg Q30M PRN IV 12/02/24 23:45 12/03/24 07:07 2 MG Ondansetron HCl 4 mg Q6HP PRN PO 12/03/24 00:30 12/03/24 05:41 4 MG Acetaminophen/ Hydrocodone Bitart 1 tab Q6HPRN PRN PO 12/03/24 03:30 12/03/24 04:46 1 TAB Examination General: The patient alert and oriented in person place and time. Patient following commands HEENT: Normocephalic a, atraumatic, moist mucous membrane Respiratory/pulmonary: Clear lungs bilaterally, vesicular murmurs present in almost all lung trammell, no associated crackles or wheezes. Cardiovascular: Normal rate, Normal S1 and S2. Abdomen: Abdomen nondistended, there is no pain to palpation in any of the abdominal quadrants, no palpable masses. Extremities: there is no peripheral edema present at the lower extremities. Musculoskeletal: Pronounced kyphosis, no pain to palpation of vertebras Peripheral pulses 3+ radial right, 3+ radials soft. 3+ dorsalis pedis right. 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 Osteopenia with multilevel chronic appearing compression fractures of the thoracic spine. -[place] 5 mg PO q6 hours History of osteopenia -Follow up out patient with orthopedics History of arthritis -Continue home medications History of PUD History of GERD History of Dementia Case discussed with Dr. Lemos. Goals of care discussed with patient and her daughter for over 20 minutes, who stated they understand and agree. Plan discussed with: Patient, Daughter Date of Service: Dec 03, 2024 Billing Provider: LUIS LEMOS MD Common Visit Codes: [id number] INP/OBS CARE(HIGH) GUERRERO MONK RESIDENT Dec 03, 2024 14:49 LUIS LEMOS MD Dec 06, 2024 16:03
[2024-12-03 17:30] VITALS: BP 118/45; PULSE 84; RESP 16; TEMP 98.1; O2SAT 94
[2024-12-03 20:00] VITALS: PULSE 64; RESP 16; O2SAT 97
[2024-12-03 20:24] LABS: Urine Budding Yeast OCCASIONAL /hpf (None Seen); Urine Protein, UAD TRACE (Negative)
[2024-12-03 20:58] VITALS: BP 126/57; PULSE 64; RESP 16; TEMP 98; O2SAT 97
[2024-12-04] VITALS (7 sets, daily range): BP systolic 99–157; BP diastolic 44–73; PULSE 70–98; RESP 16–20; TEMP 98–98.6; O2SAT 90–96
[2024-12-04 09:31] LABS: Hematocrit 33.6 % (36.0-46.0); Hemoglobin 11.3 g/dL (12.2-16.2); Mean Corpuscular Hemoglobin 32.4 pg (28.0-32.0); Mean Corpuscular Volume 96.0 fL (80.0-100.0); Nucleated Red Blood Cells % 0.0 %
[2024-12-04 10:06] LABS: Anion Gap 10 (5-15); Carbon Dioxide 23 mmol/L (20-31)
[2024-12-04 10:07] LABS: Calcium 9.2 mg/dL (8.7-10.4)
[2024-12-04 10:11] LABS: BUN/Creatinine Ratio 22.2 (10.0-20.0); Blood Urea Nitrogen 22 mg/dL (9-23); Glucose 88 mg/dL (74-106)
[2024-12-04] MEDS: cefTRIAXone 1GM/50ML D5W 50 ML IV ONE (10:13)
[2024-12-04 10:16] LABS: Chloride 106 mmol/L (98-107); Potassium 3.8 mmol/L (3.5-5.1); Sodium 139 mmol/L (136-145)
[2024-12-04] MEDS: ENOXAPARIN SOD 40 MG/0.4 ML SYRINGE SC ONE (12:03)
--- NOTE | 2024-12-04 16:54 | DVHPNRES ---
Progress Note Date Seen: Dec 04, 2024 Resident Creating Document: GUERRERO MONK RESIDENT Medical Necessity Reason Pt with a Central, PICC or Fol: No Subjective Review of Systems Patient is an 89 year old female with prior medical history of chronic back pain, osteopenia, dementia, GERD, and PUD who presented to the ED with chief complaint of back pain. Patient is states that she has had intermittent back pain for many at least the last five years, but in the last two weeks it has increased in intensity. She state describes the pain dull, localized in the upper back, nonradiating, with a usual intensity of 5/10 but has intensified to 7/10, aggravated by physical activity, and mildly reduced with acetaminophen. She denies recent falls or trauma. Initial labs show WBC 10.3, Hb 12.6, HCT 37.8, PLT 339, Sodium 144, potassium 3.8, and creatinine 1.20. Thoracic Spine CT shows no definite CT evidence of acute fracture or dislocation of the bony thoracic spine, diffuse osteopenia, multilevel degenerative changes of the spine, exaggerated kyphosis, chronic appearing multilevel mild to moderate compression at T5, T7, T9, and T11. Patient was admitted for further monitoring and work up. Patient is seen at bedside. She is slightly confused, oriented in person, but not in time and place. States that back pain persists, and is unchanged from yesterday. Per nurse, the patient seemed confused last night and had difficulty sleeping. Vitals have remained stable. Follow up labs show WBC 10.1, hemoglobin 11.3, hematocrit 33.6, platelet 326, sodium 139, potassium 3.8, creatinine 0.99, and UA significant for UTI. IV ceftriaxone was subsequently started. Pain regimen has been adjusted. Pending results of urine culture. Review of Systems: Constitutional: Denies weight loss, fever and chills. HEENT: Denies changes in vision and hearing. Respiratory: Denies shortness of breath and cough Cardiovascular: Denies chest discomfort or palpitations GI: Denies abdominal distention, abdominal pain, diarrhea : Denies dysuria and urinary frequency. Musculoskeletal: Refers localized back pain Skin: Denies rash and pruritus. Neurological: denies dizziness headache vision or hearing problems Objective vital signs Vital Sign Date Time Temp Pulse Resp B/P (MAP) Pulse Ox O2 Delivery O2 Flow Rate FiO2 12/04/24 13:00 98.3 83 20 157/69 (98 94 98.3 12/04/24 08:00 Room Air* 0 21 Total Intake and Output 12/03/24 12/03/24 12/04/24 15:00 23:00 07:00 Intake Total 375 ml 300 ml Balance 375 ml 300 ml medications Current Medications Medications Dose Ordered Sig/Marci Route Start Time Stop Time Status Last Admin Dose Admin Ondansetron HCl 4 mg Q6HP PRN PO 12/03/24 00:30 12/03/24 05:41 4 MG Ceftriaxone Sodium 50 ml @ 100 mls/hr DAILY@09 IV 12/05/24 09:00 Enoxaparin Sodium 40 mg DAILY SC 12/05/24 10:00 Acetaminophen 650 mg Q6HP PRN PO 12/04/24 15:30 Examination General: The patient oriented in person, not in place or time. Patient following commands HEENT: Normocephalic , atraumatic, moist mucous membrane Respiratory/pulmonary: Clear lungs bilaterally, vesicular murmurs present in almost all lung trammell, no associated crackles or wheezes. Cardiovascular: Normal rate, Normal S1 and S2. Abdomen: Abdomen nondistended, there is no pain to palpation in any of the abdominal quadrants, no palpable masses. Extremities: there is no peripheral edema present at the lower extremities. Musculoskeletal: Pronounced kyphosis, no pain to palpation of vertebras Peripheral pulses 3+ radial right, 3+ radials soft. 3+ dorsalis pedis right. 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 Osteopenia with multilevel chronic appearing compression fractures of the thoracic spine. -[place] 5 mg PO q6 hours, discontinued -Acetaminophen 650 mg PO q6 PRN Acute Cystitis -Ceftriaxone 1 g IV daily -Urine culture pending History of osteopenia -Follow up out patient with orthopedics History of arthritis -Continue home medications History of PUD History of GERD History of Dementia DVT prophylaxis: Lovenox 40 mg SC Case discussed with Dr. Lemos. Goals of care discussed with patient and her daughter for over 20 minutes, who stated they understand and agree. Plan discussed with: Patient My Orders My Orders Orders - GUERRERO MONK RESIDENT Procedure Category Date Status Time Acetaminophen Tablet PHA 12/04/24 In Process (Tylenol Tablet) 15:30 Date of Service: Dec 04, 2024 Billing Provider: LUIS LEMOS MD Common Visit Codes: [id number] INP/OBS CARE(HIGH) GUERRERO MONK RESIDENT Dec 04, 2024 16:54 LUIS LEMOS MD Dec 06, 2024 16:09
[2024-12-04] MEDS: ACETAMINOPHEN 325 MG TAB PO PRN (22:46)
[2024-12-05] VITALS (7 sets, daily range): BP systolic 90–122; BP diastolic 40–70; PULSE 66–89; RESP 16–18; TEMP 97.1–98.6; O2SAT 93–99
[2024-12-05 07:30] LABS: Hematocrit 30.1 % (36.0-46.0); Hemoglobin 10.6 g/dL (12.2-16.2); Mean Corpuscular Hemoglobin 33.6 pg (28.0-32.0); Mean Corpuscular Volume 95.9 fL (80.0-100.0); Nucleated Red Blood Cells % 0.0 %
[2024-12-05 07:35] LABS: Anion Gap 11 (5-15); Carbon Dioxide 21 mmol/L (20-31); Chloride 107 mmol/L (98-107); Potassium 4.0 mmol/L (3.5-5.1); Sodium 139 mmol/L (136-145)
[2024-12-05 07:37] LABS: Calcium 8.7 mg/dL (8.7-10.4)
[2024-12-05 07:41] LABS: BUN/Creatinine Ratio 19.8 (10.0-20.0); Blood Urea Nitrogen 20 mg/dL (9-23)
[2024-12-05 07:43] LABS: Glucose 60 mg/dL (74-106)
[2024-12-05] MEDS: ENOXAPARIN SOD 40 MG/0.4 ML SYRINGE SC SCH (09:20)
[2024-12-05] MEDS: cefTRIAXone 1GM/50ML D5W 50 ML IV SCH (09:20)
[2024-12-05] MEDS: KETOROLAC TROMETH 30 MG/ML 1ML VIAL IV PRN ×2 (10:30→14:34)
[2024-12-05] MEDS ORDERED: MORPHINE SULFATE INJ 2 MG/ml SYRG IV PRN (11:30)
[2024-12-05] MEDS ORDERED: KETOROLAC TROMETH 30 MG/ML 1ML VIAL IV PRN ×2 (14:15→14:30)
--- NOTE | 2024-12-05 15:31 | DVHPNRES ---
Progress Note Date Seen: Dec 05, 2024 Resident Creating Document: GUERRERO MONK RESIDENT Medical Necessity Reason Pt with a Central, PICC or Fol: No Subjective Review of Systems Patient is an 89 year old female with prior medical history of chronic back pain, osteopenia, dementia, GERD, and PUD who presented to the ED with chief complaint of back pain. Patient is states that she has had intermittent back pain for many at least the last five years, but in the last two weeks it has increased in intensity. She state describes the pain dull, localized in the upper back, nonradiating, with a usual intensity of 5/10 but has intensified to 7/10, aggravated by physical activity, and mildly reduced with acetaminophen. She denies recent falls or trauma. Initial labs show WBC 10.3, Hb 12.6, HCT 37.8, PLT 339, Sodium 144, potassium 3.8, and creatinine 1.20. Thoracic Spine CT shows no definite CT evidence of acute fracture or dislocation of the bony thoracic spine, diffuse osteopenia, multilevel degenerative changes of the spine, exaggerated kyphosis, chronic appearing multilevel mild to moderate compression at T5, T7, T9, and T11. Patient was admitted for further monitoring and work up. Patient seen at bedside. Patient is disoriented, will not respond when asked her name, simply states repeatedly that she is in pain. Toradol was started, but with limited efficacy. Her family at bedside request the patient be placed on [place] or Morphine again. It was explained to her family that while on morphine the patient was showing signs of confusion, and due to risks of injury or delirium it was discontinued. The family states that they understand the risks, but still wish for the patient to be given [place] or Morphine. Given the patient's vitals, it was decided that the patient would be given toradol and [place] with carafate due to her previous history of gastric ulcers. Social work consult has been placed to determine possible options for PT. Review of Systems: Unable to evaluate Objective vital signs Vital Sign Date Time Temp Pulse Resp B/P (MAP) Pulse Ox O2 Delivery O2 Flow Rate FiO2 12/05/24 08:00 16 Room Air* 0 21 12/05/24 05:00 98.0 81 101/59 (73) 94 98.0 Total Intake and Output 12/04/24 12/04/24 12/05/24 15:00 23:00 07:00 Intake Total 50 ml 500 ml 200 ml Output Total 700 ml Balance 50 ml -200 ml 200 ml medications Current Medications Medications Dose Ordered Sig/Marci Route Start Time Stop Time Status Last Admin Dose Admin Ondansetron HCl 4 mg Q6HP PRN PO 12/03/24 00:30 12/03/24 05:41 4 MG Ceftriaxone Sodium 50 ml @ 100 mls/hr DAILY@09 IV 12/05/24 09:00 12/05/24 09:20 100 MLS/HR Enoxaparin Sodium 40 mg DAILY SC 12/05/24 10:00 12/05/24 09:20 40 MG Acetaminophen 650 mg Q6HP PRN PO 12/04/24 15:30 12/04/24 22:46 650 MG Morphine Sulfate 2 mg Q4HPRN PRN IV 12/05/24 11:30 Hold Acetaminophen/ Hydrocodone Bitart 1 tab Q6HPRN PRN PO 12/05/24 14:15 Sucralfate 1 gm BID@0600,2200 PO 12/05/24 22:00 Ketorolac Tromethamine 15 mg Q6HPRN PRN IV 12/05/24 14:45 12/10/24 14:14 12/05/24 14:34 15 MG Examination General: The patient is disoriented. HEENT: Normocephalic , atraumatic, moist mucous membrane Respiratory/pulmonary: Clear lungs bilaterally, vesicular murmurs present in almost all lung trammell, no associated crackles or wheezes. Cardiovascular: Normal rate, Normal S1 and S2. Abdomen: Abdomen nondistended, there is no pain to palpation in any of the abdominal quadrants, no palpable masses. Extremities: Limited due to patient positioning Musculoskeletal: Pronounced kyphosis, no pain to percussion to palpation of vertebras Peripheral pulses Limited due to patient positioning Skin: No rashes or pruritus Neurological: Intact cranial nerves with no focal neurologic deficits laboratory and microbiology Laboratory Tests 12/05/24 06:15 Test 12/05/24 06:15 Range/Units Serum Glucose 60 L 74-106 mg/dL Problem List/Assessment/Plan Problem List/Assessment/Plan Assessment and Plan: Acute on Chronic back pain secondary to chromic vertebral compression fractures -Thoracic spine CT: No definite CT evidence of acute fracture or dislocation of the bony thoracic spine. Osteopenia with multilevel chronic appearing compression fractures of the thoracic spine. -[place] 5 mg PO q6 hours PRN -Toradol 15 mg IV q6 hours PRN -Acetaminophen 650 mg PO q6 PRN Acute Cystitis -Ceftriaxone 1 g IV daily -Urine culture pending History of osteopenia -Follow up out patient with orthopedics History of arthritis -Continue home medications History of PUD -Carafate suspension 1 gm BID History of GERD History of Dementia DVT prophylaxis: Lovenox 40 mg SC Social work consult has been placed to determine possible options for physical therapy. Case discussed with Dr. Lemos. Goals of care discussed with patient and her daughter for over 20 minutes, who stated they understand and agree. Plan discussed with: Daughter (Jaz) My Orders My Orders Orders - GUERRERO MONK RESIDENT Procedure Category Date Status Time Acetaminophen Tablet PHA 12/04/24 In Process (Tylenol Tablet) 15:30 Morphine Sulfate PHA 12/05/24 In Process Injection 11:30 Hydrocodone-Acet PHA 12/05/24 In Process 5/325mg Tab ([place] 14:15 Sucralfate Susp PHA 12/05/24 In Process (Carafate Susp) 22:00 Ketorolac Injection PHA 12/05/24 In Process (Toradol Injection) 14:45 Date of Service: Dec 05, 2024 Billing Provider: LUIS LEMOS MD Common Visit Codes: [id number] INP/OBS CARE(HIGH) GUERRERO MONK RESIDENT Dec 05, 2024 15:31 LUIS LEMOS MD Dec 06, 2024 16:13
[2024-12-05] MEDS: SODIUM CHLORIDE 0.9% 500 ML IV ONE (17:00)
[2024-12-05] MEDS: HYDROcodone-ACET 5/325MG TAB PO PRN (18:06)
[2024-12-05] MEDS: SUCRALFATE 1 GM/10 ML ORAL SUSP PO SCH (21:20)
[2024-12-06] VITALS (8 sets, daily range): BP systolic 100–171; BP diastolic 44–89; PULSE 16–89; RESP 16–24; TEMP 97.8–99.5; O2SAT 94–97
[2024-12-06] MEDS: hydrALAZINE HCL 20 MG/ML VL IV ONE (06:09)
[2024-12-06 06:17] LABS: Hematocrit 33.5 % (36.0-46.0); Hemoglobin 11.6 g/dL (12.2-16.2); Mean Corpuscular Hemoglobin 32.7 pg (28.0-32.0); Mean Corpuscular Volume 94.8 fL (80.0-100.0); Nucleated Red Blood Cells % 0.0 %
[2024-12-06 06:24] LABS: Chloride 105 mmol/L (98-107); Potassium 3.9 mmol/L (3.5-5.1); Sodium 138 mmol/L (136-145)
[2024-12-06 06:25] LABS: Anion Gap 11 (5-15); Carbon Dioxide 22 mmol/L (20-31)
[2024-12-06 06:26] LABS: Calcium 9.1 mg/dL (8.7-10.4)
[2024-12-06 06:31] LABS: BUN/Creatinine Ratio 25.2 (10.0-20.0); Blood Urea Nitrogen 31 mg/dL (9-23); Glucose 110 mg/dL (74-106)
[2024-12-06] MEDS ORDERED: KETOROLAC TROMETH 30 MG/ML 1ML VIAL IV PRN (10:00)
[2024-12-06] MEDS ORDERED: MORPHINE SULF 15mg ER tab PO SCH (10:45)
[2024-12-06] MEDS: Ensure HIGH Protein Chocolate 8oz Bottle PO SCH (12:27)
[2024-12-06] MEDS: MORPHINE SULF 15mg ER tab PO SCH (12:35)
[2024-12-06] MEDS: ACETAMINOPHEN 325 MG TAB PO SCH (14:36)
[2024-12-06] MEDS: MORPHINE SULFATE INJ 2 MG/ml SYRG IV PRN (15:10)
--- NOTE | 2024-12-06 17:20 | DVH ---
PROCEDURE: MRI LUMBAR SPINE WO CONTRAST INDICATION: Back pain Exam Date: 12/06/2024 03:30 PM COMPARISON: CT abdomen/ pelvis 11/25/2024 TECHNIQUE: MRI lumbar spine without intravenous contrast. FINDINGS: Grade 1 anterolisthesis L4/L5 is similar from prior. Exaggeration of the lumbar lordosis. Mild central loss of vertebral body height at L2 is similar from prior. Moderate central loss of indira tebral body height at L1 is similar from prior. Moderate loss of vertebral body height at T11 is alon lar from prior. Mild heterogeneous bone marrow signal. There is a circumscribed round T1 hypointense structure along the L1 inferior endplate measuring up to 7 mm. Ill-defined STIR hyperintensity of lo wer thoracic vertebra is likely secondary to incomplete fat saturation. Conus terminates at the level of L1-L2. Cauda equina is unremarkable. Multilevel disc desiccation. Disc height loss is most significant at L4-L5. Multilevel facet arthropa thy. Trace right facet effusions at L4-L5 and L5-S1 which are commonly degenerative. Paraspinal muscle atrophy. Bilateral renal cysts (right cortical and left parapelvic). Cholelithiasis . There is a 1.5 x 0.9 cm structure near the right common iliac bifurcation (series 8, image 42) whic h is somewhat T2 hyperintense although is unchanged from CT and may represent a normal lymph node. The following axial levels are detailed below: T12-L1: Mild right subarticular disc protrusion. No high-grade spinal stenosis. Mild right neural for aminal narrowing. L1-L2: Mild facet arthropathy. No high-grade spinal canal or neural foraminal narrowing. L2-L3: Minimal disc bulge. Mild facet arthropathy and ligamentum flavum hypertrophy. No high-grade spinal canal or neural foraminal narrowing. L3-L4: Minimal disc bulge. Moderate right facet arthropathy. Ligamentum flavum hypertrophy. No hig h-grade spinal stenosis. Minimal right neural foraminal narrowing. L4-L5: Minimal disc bulge which is eccentric in greatest in the left subarticular zone. Moderate fac et arthropathy with ligamentum flavum hypertrophy. Small annular fissure. Mild spinal stenosis with l eft subarticular space narrowing. Moderate to severe left neural foraminal narrowing. L5-S1: Minimal disc bulge. Moderate facet arthropathy. No high-grade spinal or neural foraminal narr owing. IMPRESSION: Multilevel degenerative changes are greatest at L4-L5. At this level there is mild spinal stenosis, left subarticular space narrowing, and moderate to severe left neural foraminal narrowing. [id number] chronic compression deformities at T11, L1, and L2. Small circumscribed T1 hypointensity in the L1 vertebral body is nonspecific and may represent an aty pical hemangioma.
--- NOTE | 2024-12-06 19:41 | DVHPNRES ---
Progress Note Date Seen: Dec 06, 2024 Resident Creating Document: VALE MERCEDES RESIDENT Medical Necessity Reason Pt with a Central, PICC or Fol: No Subjective Review of Systems Patient is an 89 year old female with prior medical history of chronic back pain, osteopenia, dementia, GERD, and PUD who presented to the ED with chief complaint of back pain. Patient is states that she has had intermittent back pain for many at least the last five years, but in the last two weeks it has increased in intensity. She state describes the pain dull, localized in the upper back, nonradiating, with a usual intensity of 5/10 but has intensified to 7/10, aggravated by physical activity, and mildly reduced with acetaminophen. She denies recent falls or trauma. Initial labs show WBC 10.3, Hb 12.6, HCT 37.8, PLT 339, Sodium 144, potassium 3.8, and creatinine 1.20. Thoracic Spine CT shows no definite CT evidence of acute fracture or dislocation of the bony thoracic spine, diffuse osteopenia, multilevel degenerative changes of the spine, exaggerated kyphosis, chronic appearing multilevel mild to moderate compression at T5, T7, T9, and T11. Patient was admitted for further monitoring and work up. Patient seen at bedside. Patient is alert x3, in severe distress, reports that she has diffuse back pain which is 10/10 in intensity, throughout the night since 1 week, reports feeling dizzy, and has nausea. she had a bowel movement in the morning. She denies any vomiting, headaches. Family at bedside states that a CT Spine has been done in 2020, and patient had been taking alendronate injections before. MRI of lumbar spine was ordered and shows Multilevel degenerative changes are greatest at L4-L5. At this level there is mild spinal stenosis, left subarticular space narrowing, and moderate to severe left neural foraminal narrowing, [id number] chronic compression deformities at T11, L1, and L2, Small circumscribed T1 hypointensity in the L1 vertebral body is nonspecific and may represent an atypical hemangioma. Objective vital signs Vital Sign Date Time Temp Pulse Resp B/P (MAP) Pulse Ox O2 Delivery O2 Flow Rate FiO2 12/06/24 17:00 97.8 84 19 100/54 (69) 94 97.8 12/06/24 08:00 Room Air* 0 21 Total Intake and Output 12/05/24 12/05/2425 15:00 23:00 07:00 Intake Total 300 ml 200 ml Output Total 100 ml Balance 300 ml 100 ml medications Current Medications Medications Dose Ordered Sig/Marci Route Start Time Stop Time Status Last Admin Dose Admin Ondansetron HCl 4 mg Q6HP PRN PO 12/03/24 00:30 12/06/24 09:47 4 MG Ceftriaxone Sodium 50 ml @ 100 mls/hr DAILY@09 IV 12/05/24 09:00 12/06/24 09:48 100 MLS/HR Sucralfate 1 gm BID@0600,2200 PO 12/05/24 22:00 12/06/24 06:09 1 GM Ketorolac Tromethamine 30 mg Q6HPRN PRN IV 12/06/24 10:00 12/10/24 14:14 Hold Morphine Sulfate 1 mg Q3HR PRN IV 12/06/24 10:00 12/06/24 15:10 1 MG Acetaminophen 650 mg Q8HR PO 12/06/24 14:00 12/06/24 14:36 650 MG Morphine Sulfate 15 mg DAILY PO 12/06/24 11:30 12/06/24 12:35 15 MG Enteral Nutritional Formula 240 ml TIDWM PO 12/06/24 12:00 12/06/24 18:17 240 ML Enoxaparin Sodium 30 mg DAILY SC 12/07/24 10:00 Examination General: Patient alert and oriented in person, place and time. Patient following commands. HEENT: Normocephalic, atraumatic, moist mucous membranes Respiratory/pulmonary: Clear lungs bilaterally, vesicular murmurs present in almost all lung trammell, no associated crackles or wheezes. Cardiovascular: Normal heart sounds S1 and S2 with no associated murmurs Abdomen: Abdomen nondistended, pain on palpation of lower back, no palpable masses. Extremities: There is no peripheral edema present at the lower extremities. Peripheral Pulses: 3+ Radial (R). 3+ Radial (L). 3+ Dorsalis pedis (R). 3+ Dorsalis pedis(L) Skin: No rashes or pruritus, there is no sacral edema present at this time. Neurological: Intact cranial nerves with no focal neurologic deficits laboratory and microbiology Laboratory Tests 12/06/24 05:17 Test 12/06/24 05:17 Range/Units Serum Glucose 110 H 74-106 mg/dL Problem List/Assessment/Plan Problem List/Assessment/Plan Acute on Chronic back pain secondary to chromic vertebral compression fractures -Thoracic spine CT: No definite CT evidence of acute fracture or dislocation of the bony thoracic spine. Osteopenia with multilevel chronic appearing compression fractures of the thoracic spine. -[place] 5 mg PO q6 hours PRN -Toradol 15 mg IV q6 hours PRN -Acetaminophen 650 mg PO q6 PRN - MRI shows Multilevel degenerative changes are greatest at L4-L5. At this level there is mild spinal stenosis, left subarticular space narrowing, and moderate to severe left neural foraminal narrowing, [id number] chronic compression deformities at T11, L1, and L2, Small circumscribed T1 hypointensity in the L1 vertebral body is nonspecific and may represent an atypical hemangioma. Acute Cystitis -Ceftriaxone 1 g IV daily -Urine culture pending History of osteopenia -Follow up out patient with orthopedics History of arthritis -Continue home medications History of PUD -Carafate suspension 1 gm BID History of GERD History of Dementia DVT prophylaxis: Lovenox 40 mg SC Social work consult has been placed to determine possible options for physical therapy. Case discussed with Dr. Lemos. Goals of care discussed with patient and her daughter for over 20 minutes, who stated they understand and agree. Plan discussed with: Patient Date of Service: Dec 06, 2024 Billing Provider: LUIS LEMOS MD Common Visit Codes: [id number] INP/OBS CARE(HIGH) VALE MERCEDES RESIDENT Dec 06, 2024 19:41 LUIS LEMOS MD Dec 08, 2024 13:49
[2024-12-07] VITALS (8 sets, daily range): BP systolic 91–130; BP diastolic 48–105; PULSE 85–114; RESP 16–20; TEMP 97.9–98.6; O2SAT 92–97
[2024-12-07 07:39] LABS: Hematocrit 28.1 % (36.0-46.0); Hemoglobin 9.8 g/dL (12.2-16.2); Mean Corpuscular Hemoglobin 32.9 pg (28.0-32.0); Mean Corpuscular Volume 94.9 fL (80.0-100.0); Nucleated Red Blood Cells % 0.1 %
[2024-12-07 07:44] LABS: Chloride 105 mmol/L (98-107); Potassium 3.6 mmol/L (3.5-5.1); Sodium 139 mmol/L (136-145)
[2024-12-07 07:45] LABS: Anion Gap 8 (5-15); Calcium 8.9 mg/dL (8.7-10.4); Carbon Dioxide 26 mmol/L (20-31)
[2024-12-07 07:50] LABS: BUN/Creatinine Ratio 27.2 (10.0-20.0); Glucose 103 mg/dL (74-106)
[2024-12-07 07:51] LABS: Blood Urea Nitrogen 28 mg/dL (9-23)
[2024-12-07] MEDS: ENOXAPARIN SOD 30 MG/0.3 ML SYRINGE SC SCH (09:30)
[2024-12-07] MEDS ORDERED: POLY335015 PO (13:30)
[2024-12-07] MEDS ORDERED: MORP15TA PO (14:00)
--- NOTE | 2024-12-07 17:12 | DVHDSRES ---
Discharge Summary Date of Admission Resident Creating Document: GUERRERO MONK RESIDENT Dec 02, 2024 at 23:39 Date of Discharge: Dec 07, 2024 Admitting Diagnosis Acute on Chronic Back Pain Secondary to Chronic Compression Fractures Wounds: No wounds Labs/Diagnostic Data: Laboratory Results Test 12/07/24 06:59 12/03/24 19:30 12/03/24 00:12 12/02/24 14:43 White Blood Count 9.3 10^3/uL (4.4-10.8) Red Blood Count 2.97 10^6/uL (4.0-5.20) Hemoglobin 9.8 g/dL (12.2-16.2) Hematocrit 28.1 % (36.0-46.0) Mean Corpuscular Volume 94.9 fL (80.0-100.0) Mean Corpuscular Hemoglobin 32.9 pg (28.0-32.0) Mean Corpuscular Hemoglobin Concent 34.7 g/dL (32.0-36.0) Red Cell Distribution Width 14.3 % (11.8-14.3) Platelet Count 346 10^3/uL (140-450) Mean Platelet Volume 7.1 fL (6.9-10.8) Neutrophils (%) (Auto) 65.0 % (37.0-80.0) Lymphocytes (%) (Auto) 17.2 % (10.0-50.0) Monocytes (%) (Auto) 12.8 % (0.0-12.0) Eosinophils (%) (Auto) 3.9 % (0.0-7.0) Basophils (%) (Auto) 1.1 % (0.0-2.0) Neutrophils # (Auto) 6.1 10 ^3/uL (1.6-8.6) Lymphocytes # (Auto) 1.6 10 ^3/uL (0.4-5.4) Monocytes # (Auto) 1.2 10 ^3/uL (0-1.3) Eosinophils # (Auto) 0.4 10 ^3/uL (0-0.8) Basophils # (Auto) 0.1 10 ^3/uL (0-0.2) Nucleated Red Blood Cells 0.1 % Sodium Level 139 mmol/L (136-145) Potassium Level 3.6 mmol/L (3.5-5.1) Chloride Level 105 mmol/L (98-107) Carbon Dioxide Level 26 mmol/L (20-31) Anion Gap 8 (5-15) Blood Urea Nitrogen 28 mg/dL (9-23) Creatinine 1.03 mg/dL (0.550-1.02) Glomerular Filtration Rate Calc 52 mL/min (>90) BUN/Creatinine Ratio 27.2 (10.0-20.0) Serum Glucose 103 mg/dL (74-106) Calcium Level 8.9 mg/dL (8.7-10.4) Urine Color Yellow (Yellow) Urine Clarity Clear (Clear) Urine pH 6.0 (5.0-9.0) Urine Specific [place] 1.027 (1.001-1.035) Urine Protein Trace (Negative) Urine Ketones 2+ (Negative) Urine Blood Negative /uL (Negative) Urine Nitrite Negative (Negative) Urine Bilirubin Negative (Negative) Urine Urobilinogen Normal mg/dL (Negative) Urine Leukocyte Esterase 2+ /uL (Negative) Urine RBC 6 /hpf (0 - 4) Urine Microscopic WBC 25 /HPF (0-5) Urine Squamous Epithelial Cells Mod /hpf (<5) Urine Bacteria Few /hpf (None Seen) Urine Mucus Few (None Seen) Urine Yeast (Budding) Occasional /hpf (None Urine Glucose Normal mg/dL (Normal) Troponin I High Sensitivity 12 ng/L (</=34) Lactic Acid Level 1.8 mmol/L (0.4-2.0) Total Bilirubin 0.5 mg/dL (0.2-1.0) Aspartate Amino Transferase (AST) 30 U/L (13-40) Alanine Aminotransferase (ALT) 18 U/L (7-40) Alkaline Phosphatase 62 U/L (46-116) Total Protein 6.2 g/dL (5.7-8.2) Albumin 3.7 g/dL (3.2-4.8) Test 12/02/24 14:13 POC Glucose 116 mg/dl (70-106) Other Laboratory Tests 12/07/24 06:59 Brief Hx & Hospital Course: Patient is an 89 year old female with prior medical history of chronic back pain, osteopenia, dementia, GERD, and PUD who presented to the ED with chief complaint of back pain. Patient is states that she has had intermittent back pain for many at least the last five years, but in the last two weeks it has increased in intensity. She state describes the pain dull, localized in the upper back, nonradiating, with a usual intensity of 5/10 but has intensified to 7/10, aggravated by physical activity, and mildly reduced with acetaminophen. She denies recent falls or trauma. Initial labs show WBC 10.3, Hb 12.6, HCT 37.8, PLT 339, Sodium 144, potassium 3.8, and creatinine 1.20. Thoracic Spine CT shows no definite CT evidence of acute fracture or dislocation of the bony thoracic spine, diffuse osteopenia, multilevel degenerative changes of the spine, exaggerated kyphosis, chronic appearing multilevel mild to moderate compression at T5, T7, T9, and T11. Patient was admitted for further monitoring and work up. On admission, UA was significant for UTI, for which ceftriaxone was initiated, additionally [place] was added for pain control. Patient was noted progressively more confused, for which the [place] was discontinued and she acetaminophen PRN was added. However, per her family, the pain as inadequately controlled. Toradol was started, with limited efficacy. Patient was found to be disoriented and would only respond that she was in pain when addressed. The family requested [place] or morphine be given again, the risks of confusion and delirium as well as any potential injuries in these states were explained, but ultimately the decision was made to start on morphine again. MRI lumbar spine was ordered which showed multilevel degenerative changes greatest at L4-L5, with mild spinal stenosis at this level, and mild t moderated chronic compression deformities at T11, L1 and L2. On evaluation today, patient was more alert, oriented in person and time, which according to her daughter , Jaz, is her baseline. She states her pain has improved, her appetite has improved, she has been able to ambulate to the bathroom, and is over all more comfortable. On evaluation of previous outpatient spinal imaging from 2019 provided by her granddaughter, Deysi, there is an increase in the amount of compression fractures, however when these new fractures occurred is still unknown. Today's labs are within normal range and her vitals have remained stable. She is considered safe for discharge home with a follow up appointment in the discharge clinic and pain medication. Per her daughter, it is still unsure where her mother will permanently reside, we recommend that once this is established, she establishes care with a PCP that will continue to follow her, as well as can refer her to physical therapy, chronic pain medicine, and either an seamstress fitter or boiler/chiller technician oncologist for infusion treatment for her advanced osteoporosis. Plan was discussed with the patient, her daughter, Jaz, and her granddaughter, Deysi, who state they understand and agree. Physical Exam: General: The patient more alert, oriented in person and time, not in place. Patient following commands HEENT: Normocephalic, atraumatic, moist mucous membrane Respiratory/pulmonary: Clear lungs bilaterally, vesicular murmurs present in almost all lung trammell, no associated crackles or wheezes. Cardiovascular: Normal rate, Normal S1 and S2. Abdomen: Abdomen nondistended, there is no pain to palpation in any of the abdominal quadrants, no palpable masses. Extremities: there is no peripheral edema present at the lower extremities. Musculoskeletal: Pronounced kyphosis, no pain to palpation of vertebras Peripheral pulses 3+ radial right, 3+ radials soft. 3+ dorsalis pedis right. 3+ dorsalis pedis left Skin: No rashes or pruritus Neurological: Intact cranial nerves with no focal neurologic deficits Case discussed with Dr. Ramirez. Goals of care discussed with the patient, her daughter (Jaz), and her granddaughter (Deysi), who state they understand and agree. Operations or Procedures EXAM: CT THORACIC SPINE WO CONTRAS HISTORY: pain COMPARISON: None CTDIvol 20.05 mGy, DLP 641.12 mGy*cm. TECHNIQUE: Multiple axial CT images of the spine were obtained using bone algorithm. Axial and coronal reformatting was done. Bone and soft tissue windows were reviewed. FINDINGS: No evidence of definite acute fracture, spinal dislocation, or significant appearing acute subluxation is seen. Diffuse osteopenia. Multilevel degenerative changes of the spine. Exaggerated kyphosis. Chronic appearing multilevel [id number] compression deformities are present most prominent at T5, T7, T9 and T11. Trace left pleural effusion. Cardiomegaly. IMPRESSION: No definite CT evidence of acute fracture or dislocation of the bony thoracic spine. Osteopenia with multilevel chronic appearing compression fractures of the thoracic spine. PROCEDURE: MRI LUMBAR SPINE WO CONTRAST INDICATION: Back pain Exam Date: 12/06/2024 03:30 PM COMPARISON: CT abdomen/ pelvis 11/25/2024 TECHNIQUE: MRI lumbar spine without intravenous contrast. FINDINGS: Grade 1 anterolisthesis L4/L5 is similar from prior. Exaggeration of the lumbar lordosis. Mild central loss of vertebral body height at L2 is similar from prior. Moderate central loss of vertebral body height at L1 is similar from prior. Moderate loss of vertebral body height at T11 is similar from prior. Mild heterogeneous bone marrow signal. There is a circumscribed round T1 hypointense structure along the L1 inferior endplate measuring up to 7 mm. Ill-defined STIR hyperintensity of lower thoracic vertebra is likely secondary to incomplete fat saturation. Conus terminates at the level of L1-L2. Cauda equina is unremarkable. Multilevel disc desiccation. Disc height loss is most significant at L4-L5. Multilevel facet arthropathy. Trace right facet effusions at L4-L5 and L5-S1 which are commonly degenerative. Paraspinal muscle atrophy. Bilateral renal cysts (right cortical and left parapelvic). Cholelithiasis. There is a 1.5 x 0.9 cm structure near the right common iliac bifurcation (series 8, image 42) which is somewhat T2 hyperintense although is unchanged from CT and may represent a normal lymph node. The following axial levels are detailed below: T12-L1: Mild right subarticular disc protrusion. No high-grade spinal stenosis. Mild right neural foraminal narrowing. L1-L2: Mild facet arthropathy. No high-grade spinal canal or neural foraminal narrowing. L2-L3: Minimal disc bulge. Mild facet arthropathy and ligamentum flavum hypertrophy. No high-grade spinal canal or neural foraminal narrowing. L3-L4: Minimal disc bulge. Moderate right facet arthropathy. Ligamentum flavum hypertrophy. No high-grade spinal stenosis. Minimal right neural foraminal narrowing. L4-L5: Minimal disc bulge which is eccentric in greatest in the left subarticular zone. Moderate facet arthropathy with ligamentum flavum hypertrophy. Small annular fissure. Mild spinal stenosis with left subarticular space narrowing. Moderate to severe left neural foraminal narrowing. L5-S1: Minimal disc bulge. Moderate facet arthropathy. No high-grade spinal or neural foraminal narrowing. IMPRESSION: Multilevel degenerative changes are greatest at L4-L5. At this level there is mild spinal stenosis, left subarticular space narrowing, and moderate to severe left neural foraminal narrowing. [id number] chronic compression deformities at T11, L1, and L2. Small circumscribed T1 hypointensity in the L1 vertebral body is nonspecific and may represent an atypical hemangioma. 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 Possible Osteoporosis Acute Cystitis History of osteopenia History of arthritis History of PUD History of GERD History of Dementia Discharge Disposition: Home Discharge Instruct/Medications Diet: Regular Activity: No Restrictions, As Tolerated Follow Up/Referral: Follow up in discharge clinic in 2 weeks Follow up with PCP for referral to physical therapy and seamstress fitter or boiler/chiller technician oncologist for infusion therapy Medications: Morphine PO Home medications Miralax Scheduled Cholecalciferol (Vitamin D3), 1 TAB PO DAILY, (Reported) Polyethylene Glycol 3350 (Miralax), 17 GM PO DAILY Scheduled PRN Acetaminophen (Tylenol Extra Strength), 500 MG PO Q8HPRN PRN Morphine Sulfate (Morphine Sulfate), 1 TAB PO BID PRN Ondansetron Odt 4MG Tab (Zofran Po), 4 MG PO Q8HPRN PRN Miscellaneous Medications Multiple Vitamins W/ Minerals (Centrum), 1 OR, (Reported) Discontinued Medications Cefdinir (Cefdinir), 1 CAP PO BID Hydrocodone-Acetaminophen (Hydrocodone Bitartrate/AC 5-325 mg), 1 TAB PO Q8HPRN PRN Metronidazole (Flagyl), 1 TAB PO BID Naloxone HCl (Narcan), 4 MG NA Q5MINP PRN Discharge Statement: "Patient was advised to return to the ER or call 911 if any headaches, dizziness, shortness of breath, chest pain, abdominal pain, bleeding, fevers, or worsening of medical condition. Patient was counseled about treatment plan, medications, possible side effects, patientverbalized understanding. All questions were answered to the best of my ability. This discharge took greater then 30 minutes in planning, reviewing documentation, counseling the patient, and discussing with other team members." ASSESSMENT ASSESSMENT Assessment Acute on Chronic Back Pain secondary to chronic vertebral compression fractures GUERRERO MONK RESIDENT Dec 07, 2024 17:12
== END 2024-12-07 17:40 | disposition home or self-care (01) | DRG 543 ==
LOC: ER 13:51 → OVERFLOW 23:39 → WEST WING 12-03 13:12
PROVIDERS: ADMIT Student in an Organized Health Care Education/Training Program; ATTEND Student in an Organized Health Care Education/Training Program
DX: M48.55XA Collapsed vertebra, not elsewhere classified, thoracolumbar region, initial encounter for fracture (principal); N20.2 Calculus of kidney with calculus of ureter; N30.00 Acute cystitis without hematuria; M48.52XA Collapsed vertebra, not elsewhere classified, cervical region, initial encounter for fracture; K80.20 Calculus of gallbladder without cholecystitis without obstruction; N18.9 Chronic kidney disease, unspecified; E66.9 Obesity, unspecified; F03.90 Unspecified dementia, unspecified severity, without behavioral disturbance, psychotic disturbance, mood disturbance, and anxiety; K21.9 Gastro-esophageal reflux disease without esophagitis; M85.88 Other specified disorders of bone density and structure, other site; N28.89 Other specified disorders of kidney and ureter; R26.89 Other abnormalities of gait and mobility; Z87.11 Personal history of peptic ulcer disease; Z79.899 Other long term (current) drug therapy; Z68.29 Body mass index [BMI] 29.0-29.9, adult
CPT/HCPCS: 36415; 72128; 72148; 80048; 80053; 81001; 82962; 83605; 84484; 85025; 93005; 96361; 96374; 96375; 97110; 97116; 97163; 97530; G0378; J1885; J2405; Q0162